=== PATIENT | female | born 1970 | race Caucasian/White ===

== ENCOUNTER → 2023-04-27 12:41 | Outpatient (CLI) | payer OTHER, MEDICARE, SELFPAY ==
--- NOTE | ~2023-04-27 | CT_ITS ---
. EXAMINATION: CT sinus wo con DATE: 04/27/2023 12:55 INDICATION: Chronic sinusitis, frequent drainage. Unsteady gait, balance issues. TECHNIQUE: Computed tomography (CT) of the paranasal sinuses was performed without contrast. Iterativ e reconstruction technique was employed. Exam dose: 268.51 mGy-cm total exam DLP. COMPARISON: None FINDINGS: There is slight rightward bowing of the lower portion of the nasal septum and very slight l eftward bowing of the upper portion of the nasal septum. There is moderate symmetric prominence of the nasal turbinates. The ostiomeatal units are patent bilaterally. Minimal focal mucoperiosteal thickening of each maxillary antrum. The paranasal sinuses otherwise are normally developed and aerated without mucoperiosteal thickening, soft tissue opacity or fluid level . The mastoid air cells are normally developed and aerated. Middle and inner ear apparatus appear teresa l bilaterally. IMPRESSION: Minimal septal bowing Patent paranasal sinuses Minimal focal mucoperiosteal thickening of the maxillary sinuses; otherwise unremarkable paranasal si nuses Normal mastoid air cells Reviewed, dictated and finalized at Location A. Reviewed, dictated and finalized at location L. IMPRESSION: Minimal septal bowing Patent paranasal sinuses Minimal focal mucoperiosteal thickening of the maxillary sinuses; otherwise unr emarkable paranasal sinuses Normal mastoid air cells
== END ==
PROVIDERS: PCP Family Medicine; Visit Provider Otolaryngology
DX: J32.9 Chronic sinusitis, unspecified (principal); J34.2 Deviated nasal septum
CPT/HCPCS: 70486

== ENCOUNTER 2023-06-17 08:36 | Outpatient (CLI) | payer OTHER, MEDICARE, SELFPAY ==
--- NOTE | ~2023-06-17 | XR_ITS ---
AP and lateral views of the right hip Clinical history: Pain Findings: No acute fracture or dislocation is seen. Osseous alignment is anatomic. The right hip join t space is preserved. Soft tissues are unremarkable. Impression: No significant abnormality is seen. Reviewed, dictated and finalized at location . TRONIC PARTS DESIGNER Impression: No significant abnormality is seen.
== END 2023-06-17 08:37 | disposition home or self-care (01) ==
PROVIDERS: PCP Family Medicine; Visit Provider Nurse Practitioner Family
DX: M25.551 Pain in right hip (principal)
CPT/HCPCS: 73502

== ENCOUNTER 2023-08-04 10:06 | Outpatient (CLI) | payer OTHER, MEDICARE, SELFPAY ==
[2023-08-04 10:38] LABS: Basophils Percent Auto 0.3 % (0.2-1.2); Eosinophils Absolute Auto 0.2 K/mm3 (0-0.3); Hemoglobin 15.4 g/dL (12.0-15.0); Immature Granulocyte Absolute 0.08 K/mm3 (0.00-0.031); Immature Granulocyte Percent A 0.8 % (0-0.5); Lymphocytes Absolute Auto 2.17 K/mm3 (0.9-3.2); Lymphocytes Percent Auto 21.3 % (18.3-44.2); Mean Corpuscular HGB Conc 32.8 g/dl (32-36); Mean Corpuscular Hemoglobin 29.5 pg (26-34); Mean Platelet Volume 9.1 fl (7.4-10.4); Monocytes Absolute Auto 0.7 K/mm3 (0.1-0.6); Monocytes Percent Auto 6.5 % (2.6-8.5); Neutrophils Absolute Auto 7.1 K/mm3 (1.3-6.7); Neutrophils Percent Auto 69.1 % (45.5-73.1); Platelet Count Result 281 k/mm3 (150-375); Red Blood Count 5.22 M/mm3 (4.2-5.4); Red Cell Distribution Width 12.7 % (11.5-14.5); White Blood Count 10.2 K/mm3 (4.5-10.0)
[2023-08-04 10:48] LABS: Alanine Aminotransferase 23 U/L (6-35); Albumin Level 4.1 g/dL (3.5-5.1); Alkaline Phosphatase 119 U/L (38-126); Anion Gap 6 mmol/L (8-16); Aspartate Amino Transferase 27 U/L (14-36); Bilirubin,Total 0.5 mg/dL (0.2-1.3); Blood Urea Nitrogen 28 mg/dL (7-17); Calcium 9.6 mg/dL (8.4-10.2); Carbon Dioxide 26 mmol/L (22-30); Chloride 104 mmol/L (98-107); Cholesterol 160 mg/dL (0-200); Estimated Glomerular Filt Rate > 60; Glucose 185 mg/dL (65-110); HDL Direct 40 mg/dL; Potassium 4.5 mmol/L (3.4-5.0); Sodium 136 mmol/L (137-145); Triglycerides 163 mg/dL (<150)
[2023-08-04 11:00] LABS: LDL Cholesterol Direct 85 mg/dL
[2023-08-04 11:04] LABS: Hemoglobin A1C 6.8 % (<5.7)
[2023-08-04 11:42] LABS: Thyroid Stimulating Hormone Reflex 0.155 uIU/mL (0.465-4.68)
[2023-08-04 15:31] LABS: Free T4 Free Thyroxine Reflex 1.05 ng/dL (0.78-2.19)
[2023-08-04 17:04] LABS: Total Triiodothyronine (T3) 1.65 NG/ML (0.97-1.69)
== END 2023-08-04 10:07 | disposition home or self-care (01) ==
LOC: ANHLAB 10:12
PROVIDERS: PCP Family Medicine; Visit Provider Nurse Practitioner Psychiatric/Mental Health
DX: I63.9 Cerebral infarction, unspecified (principal); I10 Essential (primary) hypertension; E11.9 Type 2 diabetes mellitus without complications; F51.01 Primary insomnia; F41.1 Generalized anxiety disorder; F33.0 Major depressive disorder, recurrent, mild; E66.9 Obesity, unspecified
CPT/HCPCS: 36415; 80053; 80061; 83036; 84439; 84443; 84480; 85025

== ENCOUNTER 2023-12-29 09:38 | Outpatient (CLI) | payer OTHER, MEDICARE, SELFPAY ==
--- NOTE | ~2023-12-29 | US_ITS ---
EXAMINATION: US carotid duplex BI DATE: 12/29/2023 11:32 INDICATION: Carotid artery dissection TECHNIQUE: Grayscale, color Doppler, and pulsed Doppler images of the cervical carotid arteries were obtained. The degree of vessel stenosis is placed in one of the following categories: normal, <50%, 5 0-69%, >=70% but less than near-occlusion, near-occlusion, or total occlusion. Note that percent sten osis relative to normal distal artery lumen diameter is indirectly measured from velocity measurement s as described by Jack, et al. Radiology 2003; 229:340-346. COMPARISON: None. FINDINGS: LEFT: The left common carotid artery (CCA) peak systolic velocity (PSV) is 93 cm/s. The left internal carot id artery (ICA) PSV is 93 cm/s. The left ICA end-diastolic velocity (EDV) is 16 cm/s. The left ICA/CC A PSV ratio is 1.0. Grayscale and color Doppler images yield an estimate of <50% diameter reduction f rom plaque in the ICA. The external carotid artery (ECA) PSV is 184 cm/s. There is antegrade flow in the left vertebral artery. RIGHT: The right CCA PSV is 87 cm/s. Likely occlusion of the right ICA with no flow seen in the mid artery o n color Doppler and with turbulent bidirectional flow during systole and with no diastolic flow durin g diastole at the proximal right ICA. The ECA PSV is 151 cm/s. There is antegrade flow in the left ve rtebral artery. IMPRESSION: 1. Likely complete occlusion of the right internal carotid artery. 2. <50% stenosis in the left internal carotid artery. Reviewed, dictated and finalized at location B.
== END 2023-12-29 09:39 | disposition home or self-care (01) ==
PROVIDERS: PCP Physician Assistant; Visit Provider Physician Assistant
DX: I65.22 Occlusion and stenosis of left carotid artery (principal); I77.71 Dissection of carotid artery; Z12.31 Encounter for screening mammogram for malignant neoplasm of breast
CPT/HCPCS: 93880

== ENCOUNTER 2024-03-08 09:03 | Outpatient (CLI) | payer OTHER, MEDICARE, SELFPAY ==
--- NOTE | ~2024-03-08 | NM_ITS ---
EXAMINATION: NM tameka stress w perfusion DATE: 03/08/2024 11:01 INDICATION: Encounter for preprocedural cardiac exam. TECHNIQUE: Rest images were obtained following intravenous administration of 10.8 mCi Tc99m tetrofosm in (Myoview). The patient was infused intravenously with Lexiscan (Regadenoson). Then, 44.5 mCi Tc99m tetrofosmin (Myoview) was administered intravenously, and stress images were obtained initially in t he supine position with repeat post stress images obtained in the prone position. Data was reconstruc pete into short axis and horizontal and vertical long axis SPECT images. Gated SPECT images were also obtained. COMPARISON: None. FINDINGS: There is a moderate-sized moderate severity reversible perfusion defect involving the mid i nferior, basilar inferior segments and small portion of the mid inferolateral segment which is presen t on post stress imaging obtained in both supine and prone positions. There is artifactual decreased activity along portions of the anterior and lateral victoria on the posterior central imaging obtained i n the supine position which normalizes on prone imaging. No perfusion defects on the rest imaging to suggest a fixed infarct. There is normal left ventricular chamber size, wall motion and ejection frac tion. Left ventricular ejection fraction measures 67%. IMPRESSION: 1. Mild to moderate severity reversible ischemia in the right coronary artery vascular distribution i nvolving the mid inferior, basilar inferior and small portion of the mid inferolateral segments. 2. Left ventricular ejection fraction measuring 67%. Reviewed, dictated and finalized at location B. IMPRESSION: 1. Mild to moderate severity reversible ischemia in the right coronary artery v ascular distribution involving the mid inferior, basilar inferior and small por tion of the mid inferolateral segments. 2. Left ventricular ejection fraction measuring 67%.
--- NOTE | 2024-03-08 09:30 | EST_ITS ---
Patient Info Name: Anne Davis Age: 53 years : 1970 Gender: Female Ht: 66 in Wt: 240 lbs BSA: 2.30 m2 HR: 81 bpm BP: 131 / 64 mmHg Exam Date: 03/08/2024 10:04 AM Exam Location: Echo Lab Patient Status: Outpatient Admit Date: 03/08/2024 Staff Ordering Physician: Edmundo Carpenter DO Attending Provider: Edmundo Carpenter DO Exercise Physician: Edmundo Carpenter DO Exam Type: CA stress tameka w NM Study Info A regadenoson stress test was performed. Summary 1. 1. Negative lexiscan stress test for ischemic ST changes by ECG criteria. 2. 2. Stable hemodynamics throughout the test. 3. 3. Nuclear scan to follow and will be reported separately. Please correlate with it. 4. 4. Patient informed of the above results. Protocol: Lexiscan Stress ECG Details Stage: REST Duration (min): 3 min : 57 sec HR (bpm): 83 SBP (mmHg): 131 DBP (mmHg): 64 Stage: REST Duration (min): 7 min : 46 sec HR (bpm): 82 SBP (mmHg): 131 DBP (mmHg): 64 Stage: STAGE 1 Duration (min): 0 min : 59 sec HR (bpm): 89 SBP (mmHg): 128 DBP (mmHg): 42 Stage: RECOVERY Duration (min): 1 min : 0 sec HR (bpm): 90 SBP (mmHg): 128 DBP (mmHg): 42 Stage: RECOVERY Duration (min): 2 min : 0 sec HR (bpm): 88 SBP (mmHg): 128 DBP (mmHg): 42 Stage: RECOVERY Duration (min): 3 min : 0 sec HR (bpm): 85 SBP (mmHg): 127 DBP (mmHg): 46 Stage: RECOVERY Duration (min): 3 min : 14 sec HR (bpm): 86 SBP (mmHg): 127 DBP (mmHg): 46 Rest HR: 82 bpm Peak HR: 90 bpm Rest Sys BP: 131 mmHg Peak Sys BP: 128 mmHg Max Pred HR: 167 bpm % Max Pred HR: 54 % Target HR: 142 bpm Max RPP: 11,520 bpm*mmHg Termination Reason: Completed protocol Cardiac Symptoms: Shortness of breath Total Time: 1 min : 0 sec Rest Carrera BP: 64 mmHg Peak Carrera BP: 42 mmHg Total Dose: 0.4 mg Resting ECG Sinus rhythm. Stress ECG No ST changes. Arrhythmias None. Report Signatures
== END 2024-03-08 09:04 | disposition home or self-care (01) ==
PROVIDERS: PCP Physician Assistant; Visit Provider Internal Medicine Cardiovascular Disease
DX: Z01.810 Encounter for preprocedural cardiovascular examination (principal); I25.9 Chronic ischemic heart disease, unspecified
CPT/HCPCS: 78452; 93017; A9502; J2785

== ENCOUNTER 2024-03-10 13:42 | Outpatient (CLI) | payer OTHER, MEDICARE, SELFPAY ==
--- NOTE | 2024-03-10 13:44 | ECHO_ITS ---
Patient Info Name: Anne Davis Age: 53 years : 1970 Gender: Female Ht: 66 in Wt: 241 lbs BSA: 2.31 m2 HR: 90 bpm BP: 123 / 76 mmHg Heart Rhythm: Sinus Rhythm Technical Quality: Fair Exam Date: 03/10/2024 2:00 PM Exam Location: Echo Lab Patient Status: Outpatient Admit Date: 03/10/2024 Staff Ordering Physician: Edmundo Carpenter DO Boat Hand: Blanca Davies RDCS Attending Provider: Edmundo Carpenter DO Referring Physician: Jayden KYLE; Exam Type: CA echo doppler color flow Study Info Indications R06.09 - Other forms of dyspnea Complete two-dimensional, color flow and Doppler transthoracic echocardiogram is performed. Summary 1. Complete two-dimensional, color flow and Doppler transthoracic echocardiogram is performed. 2. Left ventricular chamber dimension is normal. 3. Left ventricular systolic function is normal, estimated at 60-65%. 4. The left ventricular diastolic function is grade I diastolic dysfunction. 5. E/e' 12 is mildly elevated. 6. The aortic valve is not well visualized. Cannot determine number of aortic valve leaflets. 7. There is trace aortic valve regurgitation. 8. The mitral valve has mildly calcified annulus. 9. No pulmonary hypertension, estimated pulmonary arterial systolic pressure is 17 mmHg. Left Ventricle E/e' 12 is mildly elevated. Left ventricular chamber dimension is normal. Left ventricular systolic function is normal, estimated at 60-65%. The left ventricular diastolic function is grade I diastolic dysfunction. Right Ventricle Right ventricular systolic function is normal and with normal TAPSE 2.0 cm. Right ventricular chamber dimension is normal. Left Atria Left atrial chamber dimension is normal. Right Atria Right atrial chamber dimension is normal. Aortic Valve The aortic valve is not well visualized. Cannot determine number of aortic valve leaflets. There is no aortic valve stenosis based on valve area and gradients. There is trace aortic valve regurgitation. Pulmonic Valve There is no pulmonic regurgitation. Mitral Valve The mitral valve has mildly calcified annulus. There is no mitral valve stenosis. There is no mitral valve regurgitation. Tricuspid Valve There is no tricuspid valve regurgitation. No pulmonary hypertension, estimated pulmonary arterial systolic pressure is 17 mmHg. Pericardium/Pleural There is no pericardial effusion. Inferior Vena Cava Normal inferior vena cava with >50% collapse upon inspiration consistent with normal right atrial pressure, 5 mmHg. Aorta The aortic root size at the sinus of Valsalva is normal. Left Ventricular Outflow Tract Name Value Normal LVOT 2D LVOT Diameter 2.0 cm LVOT Doppler LVOT Peak Gradient 6 mmHg LVOT Mean Gradient 3 mmHg LVOT VTI 20 cm LVOT VTI/AV VTI Ratio 0.8 LVOT Stroke Volume 60 ml LVOT CO 4.5 l/min LVOT CI 1.9 l/min/m2 Pulmonic Valve Name Value Normal
== END 2024-03-10 13:43 | disposition home or self-care (01) ==
LOC: ANHCARD 13:43
PROVIDERS: PCP Physician Assistant; Visit Provider Internal Medicine Cardiovascular Disease
DX: R06.09 Other forms of dyspnea (principal); I34.81 Nonrheumatic mitral (valve) annulus calcification
CPT/HCPCS: 93306

== ENCOUNTER 2024-03-28 01:21 | Day surgery (SDC) | payer OTHER, MEDICARE, SELFPAY ==
[2024-03-27 15:42] VITALS: BMI 38.7
[2024-03-28] VITALS (15 sets, daily range): BP systolic 119–154; BP diastolic 62–82; PULSE 81–95; RESP 14–19; TEMP 36.1–36.7; O2SAT 92–97; BMI 38.8
[2024-03-28 09:07] LABS: Basophils Percent Auto 0.3 % (0.2-1.2); Eosinophils Absolute Auto 0.2 K/mm3 (0-0.3); Eosinophils Percent Auto 1.3 % (0-4.4); Hematocrit 46.2 % (37.0-47.0); Hemoglobin 15.6 g/dL (12.0-15.0); Immature Granulocyte Percent A 0.8 % (0-0.5); Lymphocytes Absolute Auto 3.73 K/mm3 (0.9-3.2); Lymphocytes Percent Auto 28.9 % (18.3-44.2); Mean Corpuscular HGB Conc 33.8 g/dl (32-36); Mean Corpuscular Hemoglobin 30.8 pg (26-34); Mean Corpuscular Volume 91.1 fl (80-100); Mean Platelet Volume 9.1 fl (7.4-10.4); Monocytes Absolute Auto 0.7 K/mm3 (0.1-0.6); Monocytes Percent Auto 5.7 % (2.6-8.5); Neutrophils Absolute Auto 8.1 K/mm3 (1.3-6.7); Platelet Count Result 319 k/mm3 (150-375); Red Blood Count 5.07 M/mm3 (4.2-5.4); Red Cell Distribution Width 12.5 % (11.5-14.5); White Blood Count 12.9 K/mm3 (4.5-10.0)
[2024-03-28 09:17] LABS: Anion Gap 12 mmol/L (4-12); Blood Urea Nitrogen 20 mg/dL (7-17); Calcium 9.2 mg/dL (8.4-10.2); Carbon Dioxide 24 mmol/L (22-30); Chloride 101 mmol/L (98-107); Estimated CRCL calculation 79 ml/min; Estimated Glomerular Filt Rate > 60; Glucose 222 mg/dL (65-110); Potassium 4.1 mmol/L (3.4-5.0); Sodium 137 mmol/L (137-145)
[2024-03-28] MEDS: SODIUM CHLORIDE 0.9% IV 500 ML 100 ML IV CONT (09:25)
--- NOTE | 2024-03-28 09:57 | WPDHPUPDATE1 ---
History and Physical Update Update Date/Time: 03/28/24 09:57 History and Physical has been reviewed, including an updated exam of the patient. There are NO changes in the patient's condition. Risks, benefits, and alternatives have been discussed and questions answered. Patient agrees to proceed with procedure.
--- NOTE | 2024-03-28 09:58 | WPDMODSED ---
Moderate Sedation Note-Pt Data Patient Data Allergies Allergy/AdvReac Type Severity Reaction Status Date / Time meperidine Allergy Unknown Unknown Verified 03/09/24 10:01 Home Medications Medication Instructions Recorded Confirmed Type aripiprazole 5 mg tablet 5 mg PO QHS 10/25/23 03/27/24 History atorvastatin 20 mg tablet 20 mg PO DAILY 10/25/23 03/27/24 History buspirone 30 mg tablet 30 mg PO BID 10/25/23 03/27/24 History duloxetine 60 mg capsule,delayed 60 mg PO DAILY 10/25/23 03/27/24 History release epinephrine 0.3 mg/0.3 mL 0.3 mg IM Q4H PRN Anaphylaxis 10/25/23 03/27/24 History injection, auto-injector flash glucose scanning reader 10/25/23 03/27/24 History ([employer] Dixie 14 Day [place]) insulin glargine 100 unit/mL (3 10 unit subcut BID 10/25/23 03/27/24 History mL) subcutaneous pen (Lantus Solostar U-100 Insulin) insulin lispro 100 unit/mL 1 sliding scale dose subcut 10/25/23 03/27/24 History subcutaneous pen (Humalog KwikPen USEASDIRECTD (U-100) Insulin) lamotrigine 200 mg tablet 200 mg PO BID 10/25/23 03/27/24 History lisinopril 5 mg tablet 5 mg PO DAILY 10/25/23 03/27/24 History sertraline 100 mg tablet 100 mg PO DAILY 10/25/23 03/27/24 History tirzepatide 2.5 mg/0.5 mL 2.5 mg subcut WEEKLY 10/25/23 03/27/24 History subcutaneous pen injector (Abby) trazodone 50 mg tablet 50 mg PO QHS PRN Insomnia 10/25/23 03/27/24 History Current Medications: Active Medications Sodium Chloride (Normal Saline Iv) 500 mls @ 100 mls/hr IV CONT .Q5H FRANCESCO Sedation/Anesthesia: No previous sedation/anesthesia problems (including family history). [facility] Past Medical History Medical History (Updated 03/09/24 @ 06:01 by Edmundo Carpenter DO) Acute sinusitis Benign paroxysmal vertigo Cerebrovascular accident (~09/28/18) Cobalamin deficiency Depressive disorder Foreign body in foot Generalized anxiety disorder GERD without esophagitis History of disorder of carotid artery (~2007) Carotid Dissection Hypercholesteremia Hyperlipidemia Hypertension Localized osteoarthritis of right knee Pilonidal cyst (~1996) Removed Primary localized osteoarthritis of left knee Transient cerebral ischemia (~09/28/18) Type 2 diabetes mellitus Surgical History Surgical History History of bunionectomy (~2002) History of endometrial ablation (~2008) History of foot surgery (~11/2020) Foreign body removal- Left foot History of parotidectomy (~2002) History of partial hysterectomy (~2009) History of tonsillectomy (~1975) History of total knee arthroplasty (~2022) Family History Family History Father Diabetes mellitus Heart disease Hypertension Grandparent Cerebrovascular accident Carcinoma of colon Acute Crohn's disease Other Family history of arthritis Family history of malignant neoplasm Family history of mental disorder Social History Social History (Updated 03/09/24 @ 10:02 by Batsheva Xavier [facility]) Smoking status: Never smoker Alcohol intake: never Substance use: never Substance use type: does not use Do You Feel Safe in your Home?: Yes Lack of Transportation: No Lack of Food: Never True Current Housing: I Have Housing Concerned About Future Housing: No Difficulty Paying Gas/Electric Bills: No Difficulty Paying for Meds: No Currently Unemployed: No Education: High School Diploma/GED Difficulty w/ Childcare or Family Care: No Living arrangements: with family Spiritual care concerns: No Mod Sed Physical Exam Physical Exam Pre Procedural Exam: Normal: Appearance, Lungs, Heart Rate and Heart Rhythm Hours since solid foods: 12 Hours since liquid intake: 8 Mallampati Classification: class III Internal Medicine - PN: Obj Da Vital Signs Vital Signs: Vital Signs - 24 hr 03/28/24 08:58 Temperature 36.1 C L Pulse Rate 95
--- NOTE | 2024-03-28 09:58 | WPDCARDPROC ---
Cardiac Cath Procedure Note Date of procedure:: 03/28/24 Performing physician:: CATHETERIZATION LABORATORY REPORT Procedure Date: 03/28/2024 Referring Physician: Dr. Carpenter Anesthesia: Versed and Fentanyl were ordered and given in my presence at 1014, procedure ended at 1029. Supervision of nurse, Neeta Wheeler, monitored moderate sedation with 2mg Versed and 50mcg Fentanyl was provided for 15 minutes. Pre-op Diagnosis: Abnormal stress test Post-op Diagnosis: Abnormal stress test Procedure(s): Left heart catheterization with coronary angiography Access Site: Right radial artery. Hemostasis via TR band Brief History and Clinical Indications: 53 yo woman with dyspnea found to have abnormal stress test here to define coronary anatomy. All risks, benefits and alternatives to left heart catheterization with or without percutaneous coronary intervention was discussed at length with the patient. Risk of complications including but not limited to bleeding, infection, arrhythmia, stroke, worsening kidney function, blood loss, groin hematoma, limb loss, emergency coronary artery bypass grafting, and even were discussed with the patient and all questions were answered. The patient understood and wished to proceed. Time out called, patient name, date of , medical record number, allergies, procedure performed, identify Material Clerk, patient and staff member concurred with accurate data, procedure carried on. Findings: LEFT HEART CATHETERIZATION FINDINGS: 1. Left main: The left main coronary artery is widely patent without any significant obstructive disease. 2. Left anterior descending: The LAD and the diagonal branches have mild diffuse 20% stenosis without any significant obstructive angiographic disease. 3. Left circumflex: The left circumflex artery gives off 3 OM branches. The proximal left circumflex has 50-60% stenosis. The OM branches have luminal irregularities. This system provides collaterals to the RCA territory. 4. Right coronary artery: The RCA is a dominant vessel with a AREA INTELLIGENCE TECHNICIAN in it's midbody. 5. Left ventricle: A. End-diastolic pressure 23 mmHg. B. LV gram deferred. C. No significant gradient across aortic valve on catheter pullback. 6. Opening AO pressure 107/64 (76) and closing AO pressure 142/74 (96) Description of Procedure: Informed consent signed and placed in the chart. Patient transferred to label printing machinist room. Prepped and draped in usual sterile fashion. 2% lidocaine injected subcutaneously in right wrist area. 22-gauge venipuncture catheter used to access the right radial artery with the Seldinger technique. 6-FR slender sheath placed in right radial artery. Nitroglycerin 200mcg, Verapamil 2.5mg, and Heparin 5000U was given intraarterial through the sheath. J wire advanced under fluoroscopy 5Fr TIG diagnostic catheter engaged Left Main Coronary Artery. 5Fr TIG diagnostic catheter engaged Right Coronary Artery Multiple orthogonal angiogram obtained and reviewed 5Fr Pigtail diagnostic catheter crossed aortic valve to obtain LVEDP, LV angiogram deferred. Assessment: CAD Post Operative Condition: Stable No significant blood loss Disposition: Home Plan: Medical management/Antianginals [facility]
== END 2024-03-28 14:10 | disposition home or self-care (01) ==
PROVIDERS: PCP Physician Assistant; Visit Provider Internal Medicine
PROC: 4A023N7 Measurement of Cardiac Sampling and Pressure, Left Heart, Percutaneous Approach (ICD-10-PCS; CPT 93452; principal; 2024-03-28 10:00)
DX: I25.10 Atherosclerotic heart disease of native coronary artery without angina pectoris (principal); R94.39 Abnormal result of other cardiovascular function study; I10 Essential (primary) hypertension; E11.9 Type 2 diabetes mellitus without complications; E78.00 Pure hypercholesterolemia, unspecified; F32.A Depression, unspecified; F41.1 Generalized anxiety disorder; K21.9 Gastro-esophageal reflux disease without esophagitis; E53.8 Deficiency of other specified B group vitamins; M17.0 Bilateral primary osteoarthritis of knee; Z98.890 Other specified postprocedural states; Z79.4 Long term (current) use of insulin; Z79.85 Long-term (current) use of injectable non-insulin antidiabetic drugs; Z86.79 Personal history of other diseases of the circulatory system; Z86.73 Personal history of transient ischemic attack (TIA), and cerebral infarction without residual deficits; Z80.0 Family history of malignant neoplasm of digestive organs; Z82.49 Family history of ischemic heart disease and other diseases of the circulatory system
CPT/HCPCS: 36415; 78452; 80048; 85025; 93017; 93458; A9502; C1769; C1887; C1894; J1644; J2003; J2250; J2305; J2785; J3010; J7040

== ENCOUNTER 2024-12-26 10:47 | Outpatient (RCR) | payer OTHER, MEDICARE, SELFPAY ==
--- NOTE | 2024-12-06 11:19 | PCPTNOTE ---
pt called and canceled today's PT evaluation appt.
--- NOTE | 2024-12-26 12:03 | OPREHPOC ---
Outpatient Therapy Plan of Care This is a Multidisciplinary Plan of Care that may contain components documented by all disciplines (PT, OT, and ST.) PT Problem 1 PT Problem #1 Knowledge Deficit PT Goal 1 Goal / Goal Update *independent with HEP Target Visit 8 PT Problem 2 PT Problem #2 Impaired Strength PT Goal 1 Goal / Goal Update 1improve R and L LE gross strength to 4+/5, to improve mobility skills and balance single leg standing x 10 seconds 2* R 3* L Target Visit 8 PT Problem 3 PT Problem #3 Impaired Functional Mobility PT Goal 1 Goal / Goal Update 1* Yeung balance score of 56/56 2* 5 reps sit/stand time of 14 seconds 3* 2 minute walking test distance of 475' Target Visit 8
--- NOTE | 2024-12-26 12:03 | PTOPEVAL1 ---
Assessment and note entered by Ella Herring, PT Evaluation Information Assessment Status Evaluation ICD-10 Condition Codes (PT) Difficulty Walking R26.2,Abnormalities of gait and mobility R26.9,Weakness R53.1,Dizziness and Giddiness R42 Onset Feb 2024 Subjective Information chronic issues with equilibrium, when standing up, but not always happen; mentioned it to her dr about Feb 2024; have had falls, with R leg tremors and weak, makes me fall; in the past 6 months have had 1 fall; nervous about walking from the parking lot into this building due to R leg and head feeling heavy, afraid to fall symptoms: unsteady, head heavy, head is big, grab onto something to steady herself, walking is unsteady increase: first stand up, decrease: sit down, wait until passes, hold onto something, walk out in public with holding onto ; Activity: home with ; able to do all home and self care tasks; 3 entry steps with 1 hand rail- do ok holding onto rail; does some grocery shopping but prefers her does it, she holds onto cart; does not work outside of the home; does not do any fitness exercises; does not use assistive device; Reported Pain Level Pain Score 4: Self Report R knee Assessment PT Clinical Summary Anne has the diagnosis of vestibular/dizziness, weakness, decreased mobility. Dizziness Handicap index self rating of 44. She had R knee pain and stated she needs to have TKR, but putting it off as long as she can. She does not do any fitness exercises and reports nervous to walk at the store and go places. Symptoms are of head heavy and feel funny, unsteady and off balance. Medical history: CVA with R side weakness, generalized arthritis of body, R knee pain/ needing TKR, allergy/sinus issues, anxiety, depression, HTN, diabetes, with multiple meds. With the evaluation: vestibular testing for BPPV was negative; positional changes, standing 360' turns-do not cause any dizziness; BP was stable with sit and standing positions. 5 reps sit/stand time of 17 seconds; 2 minute walking test distance of 425' with report of SOB; Yeung balance score of 49/56, gross strength of R LE is 4-/5 and L 4/5. Skilled PT services are indicated for therapeutic exercises and activity to increase LE strength, gait and balance skills, with education for HEP and safety with mobility. Monitor vestibular symptoms and pain with increase activity. Plan of Care Interventions Neuro Re-education,Patient/Caregiver Education, Therapeutic Activities,Therapeutic Exercise PT Services Indicated Yes Treatment Frequency and 1-2x/wk for 8 visits Duration These treatments will address the objective and functional deficits as defined above. The patient will be advanced safely and appropriately in order for the patient to progress towards his/her prior level of function. Additional exercises will be introduced and as well as a comprehensive home exercise program upon discharge, if needed, ?to ensure carryover of functional gains achieved in the clinic. This treatment plan has been reviewed and agreement upon by the patient.
--- NOTE | 2025-01-10 14:28 | OPREHPOC ---
Outpatient Therapy Plan of Care This is a Multidisciplinary Plan of Care that may contain components documented by all disciplines (PT, OT, and ST.) PT Problem 1 PT Problem #1 Knowledge Deficit PT Goal 1 Goal / Goal Update *independent with HEP 01-10-25 d/c goals were not addressed pt called and canceled therapy Target Visit 8 PT Problem 2 PT Problem #2 Impaired Strength PT Goal 1 Goal / Goal Update 1improve R and L LE gross strength to 4+/5, to improve mobility skills and balance single leg standing x 10 seconds 2* R 3* L 01-10-25 d/c goals were not addressed pt called and canceled therapy Target Visit 8 PT Problem 3 PT Problem #3 Impaired Functional Mobility PT Goal 1 Goal / Goal Update 1* Yeung balance score of 56/56 2* 5 reps sit/stand time of 14 seconds 3* 2 minute walking test distance of 475' 01-10-25 d/c goals were not addressed pt called and canceled therapy Target Visit 8
--- NOTE | 2025-01-10 14:28 | PTOPDC ---
Assessment and note entered by Ella Herring, PT Assessment Status Discharge - Pt Not Present ICD-10 Condition Codes (PT) Difficulty Walking R26.2,Abnormalities of gait and mobility R26.9,Weakness R53.1,Dizziness and Giddiness R42 Onset Feb 2024 Subjective Information pt was not seen this date. Assessment PT Clinical Summary Anne received the PT evaluation on December 26. She called today and canceled all of the therapy appointments due to having neuro issues. The goals were not addressed. Discharge PT per pt request. Plan of Care PT Services Indicated No
== END 2025-01-11 10:32 | disposition home or self-care (01) ==
LOC: ANHPT 10:47
PROVIDERS: PCP Physician Assistant; Visit Provider Nurse Practitioner Family
DX: R42 Dizziness and giddiness (principal)
CPT/HCPCS: 97110; 97161; 97530

== ENCOUNTER 2025-02-19 11:48 | Outpatient (CLI) | payer OTHER, MEDICARE, SELFPAY ==
--- OUTSIDE RECORDS SUMMARY | 2023-12-11 16:30 | XMS_ITS ---
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 Name Role Phone José Miguel Velez Primary Care Provider Unavailab Jeffrey Graves Unavailable [phone] [facility]Migration, Provider Unavailable Unavailab le Allergies Allergen (clinical drug ingredient) Drug/Non Drug Allergy documented on EMR Reaction Allergy Type Onset Date Status DEMEROL HCL (uncoded) Hallucinations Allergy Active REASON [facility] VISIT [facility] Encounter Medications Medication SIG (Take, Route, Frequency, Duration) Notes Start Date End Date Status Levemir 100 UNIT/ML 0 subcutaneously Active Victoza 18 MG/3ML subcutaneously once a day Active Azelastine HCl 137 MCG/SPRAY 2 spray(s) intranasally 2 times a day; Duration: 30 day(s) Active Azelastine HCl 137 MCG/SPRAY 2 spray(s) intranasally 2 times a day; Duration: 30 days Unknown OLOPATADINE HYDROCHLORIDE 665 MCG/INH 2 SPRAY(S) INTRANASALLY 2 TIMES A DAY; Duration: 30 DAY(S) *Please review for potential replacement for e-prescription and drug interaction check* 05/30/2020 Unknown EPINEPHrine 0.3 MG 0.3 MG INTRAMUSCULARLY ONCE; Duration: 30 DAY(S) *Please review and pick correct strength-formulat ion from [employer] options. If intended option is not shown, discontinue and re-order from Quick Search* Active NASAL WASHES N/A DIRECTED INTRANASALLY NEEDED; Duration: 30 *Please review for potential replacement for e-prescription and drug interaction check* Active Azelastine HCl 137 MCG/SPRAY 2 spray(s) intranasally 2 times a day; Duration: 30 day(s) Active SIT (TRADITIONAL) VARIABLE PER SCHEDULE SC PER SCHEDULE *Please review for potential replacement for e-prescription and drug interaction check* Active NovoLIN 70/30 (70-30) 100 UNIT/ML 0 subcutaneously Acti ve PAZEO 0.7% 1 GTT IN EACH AFFECTED EYE ONCE A DAY; Duration: 30 DAY(S) *Please review for potential replacement for e-prescription and drug interaction check* Active Lisinopril 5 MG 1 tab(s) orally once a day Active ZyrTEC Allergy 10 MG 1 tab(s) orally once a day Active AGGRENOX 25 MG-200 MG 1 CAP(S) ORALLY 2 TIMES A DAY *Please review for potential replacement for e-prescription and drug interaction check* Active ALPRAZolam 0.25 MG 2 tab(s) orally qhs Active Atorvastatin Calcium 10 MG 1 tab(s) orally once a day Active lamoTRIgine 150 MG 1 tab(s) orally 2 times a day Active Encounters Encounter Location Date Provider Diagnosis [address] [address] 12/11/2023 Provider ZZ-Migration Plan Of Treatment No Information Progress Notes * Anne STANLEY ADOB: 0 (54 yo F)Acc No.[id number]:12/11/2023 Patient: Anne COUCH Provider: Courtney Ramirez :1970 A ge:53 Y S ex:Female Date:12/11/2023 Address:[address] [place], [place] [id number] Pcp:José Miguel Velez Subjective: * Chief Complaints: * 1 . Multum To [employer] Conversion Encounter. * Medical History: * Medications: T aking Victoza 18 MG/3ML Solution Pen-injector subcutaneously once a day , Taking Levemir 100 UNIT/ML Solution 0 subcutaneously , Taking lamoTRIgine 150 MG Tablet 1 tab(s) orally 2 times a day , Taking Atorvastatin Calcium 10 MG Tablet 1 tab(s) orally once a day , Taking ALPRAZolam 0.25 MG Tablet 2 tab(s) orally qhs , Taking AGGRENOX 25 MG-200 MG CAPSULE, EXTENDED RELEASE 1 CAP(S) ORALLY 2 TIMES A DAY , Notes to Pharmacist: *Please review for potential replacement for e-prescription and drug interaction check*, Taking Lisinopril 5 MG Tablet 1 tab(s) orally once a day , Taking PAZEO 0.7% SOLUTION 1 GTT IN EACH AFFECTED EYE ONCE A DAY , Notes to Pharmacist: *Please review for potential replacement for e-prescription and drug interaction check*, Taking ZyrTEC Allergy 10 MG Tablet 1 tab(s) orally once a day , Taking NASAL WASHES N/A 1 QUART OF STERILIZED TAP WATER OR DISTILLED WATER, 1 TSP NACL, 1 PINCH OF BAKING SODA DIRECTED INTRANASALLY NEEDED , Notes to Pharmacist: *Please review for potential replacement for e-prescription and drug interaction check*, Taking EPINEPHrine 0.3 MG KIT 0.3 MG INTRAMUSCULARLY ONCE , Notes to Pharmacist: *Please review and pick correct strength-formulation from [employer] options. If intended option is not shown, discontinue and re-order from Quick Search*, Taking SIT (TRADITIONAL) VARIABLE SEE RECORD PER SCHEDULE SC PER SCHEDULE , Notes to Pharmacist: *Please review for potential replacement for e-prescription and drug interaction check*, Taking Azelastine HCl 137 MCG/SPRAY Solution 2 spray(s) intranasally 2 times a day , Taking NovoLIN 70/30 (70-30) 100 UNIT/ML Suspension 0 subcutaneously , Taking Azelastine HCl 137 MCG/SPRAY Solution 2 spray(s) intranasally 2 times a day , Unknown OLOPATADINE HYDROCHLORIDE 665 MCG/INH SPRAY 2 SPRAY(S) INTRANASALLY 2 TIMES A DAY , Notes to Pharmacist: *Please review for potential replacement for e-prescription and drug interaction check*, Unknown Azelastine HCl 137 MCG/SPRAY Solution 2 spray(s) intranasally 2 times a day * Allergies: D EMEROL HCL: Hallucinations - Side Effects. Objective: * Vitals: Assessment: Plan: * Treatment: * Billing Information: * Visit Code: * Procedure Codes: * Electronic signature of Shea NEGRO-Migration on 02/19/2025 at 12:17 PM CDT Sign off status: Pending * Provider: Courtney cummins Migration Date: 0 12/11/2023 Generated for Naye trujillo/Anny/eTransmitting on: 0 02/19/2025 12:17 PM CDT
--- OUTSIDE RECORDS SUMMARY | 2023-12-16 12:30 | XMS_ITS ---
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 Role Phone José Miguel Velez Primary Care Provider Unavailab Jeffrey Graves Unavailable [phone] Betty Shearer Unavailable [phone] REASON FOR VISIT [facility] follow-up Encounters Encounter Location Date Provider Diagnosis [facility] [address] [place] [address] 12/16/2023 Betty Shearer Plan Of Treatment No Information Progress Notes * Anne STANLEY ADOB: 0 (54 yo F)Acc No.[id number]:12/16/2023 Progress Notes Patient: Anne COUCH Provider: Maurilio Shearer PA-C :1970 A ge:53 Y S ex:Female Date:12/16/2023 Address[address] [facility] Pcp:José Miguel Velez Subjective: * Chief Complaints: * 1 . [facility]C follow-up. * Medical History: Objective: * Vitals: Assessment: Plan: * Treatment: * Billing Information: * Visit Code: * Procedure Codes: * Electronic signature of Leonard Shearer PA-C [facility] on 02/19/2025 at 12:17 PM CDT Sign off status: Pending * Provider: Maurilio Shearer PA-C Date: 0 12/16/2023 Generated for Naye trujillo/Anny/Kamran on: 0 02/19/2025 12:17 PM CDT
--- OUTSIDE RECORDS SUMMARY | 2025-02-19 12:17 | XMS_ITS | Patient Health Record ---
Author Organization [facility] [place] ([address]) Address [address] [place] [address] Care Team Providers Care Center Administrator Name Role Phone José Miguel Velez Primary Care Provider Unavailab Jeffrey Graves Unavailable [phone] Allergies Allergen (clinical drug ingredient) Drug/Non Drug Allergy documented on EMR Reaction Allergy Type Onset Date Status DEMEROL HCL (uncoded) Hallucinations Allergy Active Reason For Referral No Information Medications Medication SIG (Take, Route, Frequency, Duration) Notes Start Date End Date Status LEVEMIR 100 units/mL 0 subcutaneously Active VICTOZA 18 mg/3 mL subcutaneously once a day Active ATORVASTATIN 10 mg 1 tab(s) orally once a day Active LAMOTRIGINE 150 mg 1 tab(s) orally 2 times a day Active EPINEPHrine 0.3 MG 0.3 MG INTRAMUSCULARLY ONCE; Duration: 30 DAY(S) *Please review and pick correct strength-formulat ion from [employer] options. If intended option is not shown, discontinue and re-order from Quick Search* Active ALPRAZOLAM 0.25 mg 2 tab(s) orally qhs Active NASAL WASHES N/A DIRECTED INTRANASALLY NEEDED; Duration: 30 *Please review for potential replacement for e-prescription and drug interaction check* Active Azelastine HCl 137 MCG/SPRAY 2 spray(s) intranasally 2 times a day; Duration: 30 day(s) Active LISINOPRIL 5 mg 1 tab(s) orally once a day Active SIT (TRADITIONAL) VARIABLE PER SCHEDULE SC PER SCHEDULE *Please review for potential replacement for e-prescription and drug interaction check* Active Azelastine HCl 137 MCG/SPRAY 2 spray(s) intranasally 2 times a day; Duration: 30 day(s) Active ZYRTEC 10 mg 1 tab(s) orally once a day Active NovoLIN 70/30 (70-30) 100 UNIT/ML 0 subcutaneously Acti ve Azelastine HCl 137 MCG/SPRAY 2 spray(s) intranasally 2 times a day; Duration: 30 days Unknown OLOPATADINE HYDROCHLORIDE 665 MCG/INH 2 SPRAY(S) INTRANASALLY 2 TIMES A DAY; Duration: 30 DAY(S) *Please review for potential replacement for e-prescription and drug interaction check* 05/30/2020 Unknown EPINEPHRINE 0.3 mg 0.3 mg intramuscularly once; Duration: 30 day(s) Active AZELASTINE HYDROCHLORIDE NASAL 137 mcg/inh 2 spray(s) intranasally 2 times a day; Duration: 30 day(s) Active AZELASTINE HYDROCHLORIDE NASAL 137 mcg/inh 2 spray(s) intranasally 2 times a day; Duration: 30 day(s) Active NOVOLIN 70/30 human recombinant 70 units-30 units/mL 0 subcutaneously Active PAZEO 0.7% 1 GTT IN EACH AFFECTED EYE ONCE A DAY; Duration: 30 DAY(S) *Please review for potential replacement for e-prescription and drug interaction check* Active Lisinopril 5 MG 1 tab(s) orally once a day Active ZyrTEC Allergy 10 MG 1 tab(s) orally once a day Active AZELASTINE NASAL 137 mcg/inh 2 spray(s) intranasally 2 times a day; Duration: 30 days Unknown Levemir 100 UNIT/ML 0 subcutaneously Active Victoza 18 MG/3ML subcutaneously once a day Active Atorvastatin Calcium 10 MG 1 tab(s) orally once a day Active lamoTRIgine 150 MG 1 tab(s) orally 2 times a day Active AGGRENOX 25 MG-200 MG 1 CAP(S) ORALLY 2 TIMES A DAY *Please review for potential replacement for e-prescription and drug interaction check* Active ALPRAZolam 0.25 MG 2 tab(s) orally qhs Active Immunizations Vaccine Route Administration Date Status Comme nts Fluzone Quadrivalent Unknown 05/18/2020 Administered Influenza Unknown 03/02/2016 Administered NOC Fluzone Quadrivalent Unknown 03/07/2018 Refused NOC Fluzone Quadrivalent Unknown 09/19/2018 Refused Social History Tobacco Use: Social History Observation Description Date Details (start date - stop date) Never Smoker NA - NA Smoking Smart Form: Question Answer Notes Are you a: never smoker Problems Problem Type SNOMED Code ICD Code Onset Dates Problem Status W/U Status Risk Notes Problem Chronic allergic conjunctivitis (12085831) Other chronic allergic conjunctivitis (H10.45) Active confirmed Problem Allergic rhinitis caused by pollen (disorder) (45647196) Allergic rhinitis due to pollen (J30.1) Active confirmed Problem Allergic rhinitis caused by animal hair and dander (929727837428496) Allergic rhinitis due to animal (cat) (dog) hair and dander (J30.81) Active confirmed Problem Allergic rhinitis (98940974) Other allergic rhinitis (J30.89) Active confirmed Problem Chronic rhinitis (18211481) Chronic rhinitis (J31.0) Active confirmed Problem Adverse effect o f other narcotics, subsequent encounter (T40.695D) Active confirmed Problem Allergic rhinitis caused by pollen (disorder) (27433628) Allergic rhinitis due to pollen (J30.1) Active confirmed Problem Allergic rhinitis caused by animal hair and dander (056889405750023) Allergic rhinitis due to animal (cat) (dog) hair and dander (J30.81) Active confirmed Problem Allergic rhinitis (62189234) Other allergic rhinitis (J30.89) Active confirmed Problem Chronic allergic conjunctivitis (96838216) Other chronic allergic conjunctivitis (H10.45) Active confirmed Problem Snoring (45192484) Snoring (R06.83) Active confirmed Problem Essential hypertension (25622119) Essential (primary) hypertension (I10) Active confirmed Plan Of Treatment No Information Insurance Providers Payer Name Payer Address Payer Phone Subscriber Number Group Number Insured Name Patient Relationship to Insured Coverage Start Date Coverage End Date [facility] [address] [place] [address] [phone] [id number] Presley Soto Spouse - patient is the spouse of the insured 1 [facility] Medicare [address] [address] [place] [address] [id number] Anne Davis Self - patient is the insured Medical (General) History Medical History History ICD Code Other cerebrovascular disease Pure hypercholesterolemia, unspecified Diabetes insipidus Anxiety disorder, unspecified Allergic rhinitis due to pollen Other allergic rhinitis Other chronic allergic conjunctivitis Chronic rhinitis Adverse effect of other narcotics, subse quent encounter Snoring Essential (primary) hypertension Surgical History Surgery Date(Month/Year) T & A 1975 Pilonidal Cyst Removal 1996 Salivary Gland Removal 2000 Uterine Ablation 2008 Partial Hysterectomy 2009 Foreign object removed from foot 06/2021 knee replacement 09/24/2022 Hospitalization History Reason Date(Month/Year) CVA 2008 Pneumonia 1980
--- OUTSIDE RECORDS SUMMARY | 2025-02-19 12:17 | XMS_ITS | Patient Health Record ---
Author Organization [facility] [employer] Address [address] [place] [address] Care Team Providers Care Timber Deadener Name Role Phone Delphine Kingsley PA-C Primary Care Provider Batsheva Enriquez Unavailable [phone] Allergies No Known Allergies Reason For Referral No Information Medications Medication SIG (Take, Route, Frequency, Duration) Notes Start Date End Date Status Abilify 5 MG Tablet 1 tablet Oral Once a day; Duration: 90 days D/C 7.5 MG DOSE Active FREESTYLE CHARY 14 DAY SENSOR KIT *Reorder from [employer] for eRx and Interaction Alerts* 10/22/2023 Active Sertraline HCl 100 MG Tablet 1 tablet Oral Once a day; Duration: 90 days Active ARIPiprazole 5 MG Tablet Oral 10/22/2023 Not-Taking Ergocalciferol 1.25 MG (02511 UT) Capsule Oral 10/22/2023 Not-Taking DULoxetine HCl 60 MG Capsule Delayed Release Particles 1 capsule Oral Once a day; Duration: 90 days Active Atorvastatin Calcium 20 MG Tablet Oral 10/22/2023 Active lamoTRIgine 200 MG Tablet 1 tablet Oral twice a day; Duration: 90 days Active Levemir FlexPen 100 unit/mL (3 mL) INSULIN PEN (ML) SUBCUTANEOUS *Reorder from [employer] for eRx and Interaction Alerts* 10/22/2023 Active Lisinopril 5 MG Tablet Oral 10/22/2023 Active HYDROcodone-Acetamin ophen 5-325 MG Tablet Oral 10/22/2023 Not-Taking Aspirin-Dipyridamole ER 25-200 mg Capsule Extended Release 12 Hour Oral 10/22/2023 Active TRULICITY 4.5 MG/0.5 ML SUBCUTANEOUS PEN INJECTOR *Reorder from [facility] for eRx and Interaction Alerts* 10/22/2023 Not-Taking HumaLOG KwikPen 100 UNIT/ML Solution Pen-injector Subcutaneous 10/22/2023 Active TRULICITY 3 MG/0.5 ML SUBCUTANEOUS PEN INJECTOR *[facility] from [facility] for [facility]Rx and Interaction Alerts* 10/22/2023 Not-Taking Mounjaro 7.5 MG/0.5ML Solution Pen-injector Subcutaneous *[facility] from [facility] for eRx and Interaction Alerts* 10/22/2023 Active Immunizations Vaccine Route Administration Date Status Comme nts Influenza virus vaccine, quadrivalent (IIV4), split virus, 0.25 mL dosage Unknown 04/28/2021 Administered Influenza, live, intranasal Unknown 04/01/2022 Administ ered Influenza, unspecified formulation Unknown 02/25/2023 A dministered Moderna Covid-19 Vaccine 1st dose Unknown 10/15/2019 Ad ministered Pfizer Biontech Covid-19 Vac cine 2nd dose Unknown 10/14/2020 Administered Pfizer [employer] Covid-19 Vac cine 2nd dose Unknown 11/04/2020 Administered Varicella Unknown 03/28/2021 Administered Zoster Unknown 04/28/2022 Administered Social History Tobacco Use: Social History Observation Description Date Details (start date - stop date) Former Smoker NA - NA Sex Assigned At : Social History Observation Description Sex Assigned At Female Social History Miscellaneous: Social Info Question Answer Notes Advance Care Planning Are you your own decision-maker Yes Do you have Power of Trust Administrative Assistant for Health or [facility]? No Tobacco Use: Social Info Question Answer Notes Tobacco Control (Standard) Tobacco use: Former smoker Additional Details Category Social Info Options Details Migrated Social History Migrated Social History Alcohol Intake: Occasional 02/19/2022,Tobacco Years: Former smoker 05/29/2021,Smoking Status: 11 07/23/2023 Drug/Alcohol: Do you smoke marijuana? Denies Do you drink alcohol? No Problems Problem Type SNOMED Code ICD Code Onset Dates Problem Status W/U Status Risk Notes Problem Mild recurrent major depression (30400835) Major depressive disorder, recurrent, mild (F33.0) 10/22/19 24 Active confirmed Problem Generalized anxiety disorder (38481856) Generalized anxiety disorder (F41.1) 10/22/19 Active confirmed Problem Posttraumatic stress disorder (09001518) Post-traumatic stress disorder, chronic (F43.12) 10/22/19 Active confirmed Problem Primary insomnia (0139824) Primary insomnia (F51.01) 10/22/19 Active confirmed Problem Screening for cardiovascular system disease (702062773) Encounter for screening for cardiovascular disorders (Z13.6) Active confirmed Problem Depression Screening (973522696) Encounter for screening for depression (Z13.31) Active confirmed Vital Signs Heart Rate 79 /min 01/16/2025 Respiratory Rate 16 /min 01/16/2025 Height-cm 167.64 cm 01/16/2025 Blood pressure diastolic 68 mm Hg 01/16/2025 Weight-kg 112.67 kg 01/16/2025 Height 66.00 in 01/16/2025 Blood pressure systolic 109 mm Hg 01/16/2025 Weight 248.4 lbs 01/16/2025 BMI 40.09 kg/m2 01/16/2025 Encounters Encounter Location Date Provider Diagnosis [facility] [employer] [address] [address] 04/18/2024 Batsheva Curry Major depressive disorder, recurrent, mild F33.0 ; Generalized anxiety disorder F41.1 ; Primary insomnia F51.01 and Post-traumatic stress disorder, chronic F43.12 [facility] [employer] [address] 08/17/2024 Batsheva Curry Major depressive disorder, recurrent, mild F33.0 ; Generalized anxiety disorder F41.1 ; Primary insomnia F51.01 and Post-traumatic stress disorder, chronic F43.12 [facility] [address] 10/17/2024 Batsheva Thery Encounter for screen ing for depression Z13.31 ; Encounter for screening for cardiovascular disorders Z13.6 ; Major depressive disorder, recurrent, mild F33.0 ; Generalized anxiety disorder F41.1 ; Primary insomnia F51.01 and Post-traumatic stress disorder, chronic F43.12 [facility] [employer] [place] [address] [address] 01/16/2025 Batshevavirgilio Curry Encounter for screen ing for depression Z13.31 ; Encounter for screening for cardiovascular disorders Z13.6 ; Major depressive disorder, recurrent, mild F33.0 ; Generalized anxiety disorder F41.1 ; Primary insomnia F51.01 and Post-traumatic stress disorder, chronic F43.12 [facility] [address] [place] [address] 07/17/2024 Batsheva Therbozena [facility] [place] [address] [place] [address] 08/06/2024 Batsheva Therbozena [facility] [employer] [place] [address] [place] [address] 10/13/2024 Batsheva Curry Assessments Encounter Date Diagnosis (ICD Code) Assessment Notes Treatment Notes Treatment Clinical Notes Section Notes 08/17/2024 Major depressive disorder, recurrent, mild (ICD-10 - F33.0) 1. major depression - having increase in depression Sertraline 100 mg daily increase Abilify 7.5 mg at bedtime Cymbalta 60 mg in am Lamotrigine 200 mg twice a day labs PCP AIMS =0 11/17/21 AIMS =0 12/31/22 AIMS= 0 07/23/23 missing teeth couple top left AIMS= 0 08/17/24 educated on all medications, benefits, side effects and risk, and educated on depression, anxiety, and ADHD, mood d/o and educated on compliance of medications, metabolic and movement d/o education appointment's, continue therapy discussion with patient about course of treatmentand patient instructions. Lamotrigine lamotrigine has a serious rashes requiring hospitalization and discontinue treatment including Rigoberto Nicho syndrome rare case of toxic epidermal necrolysis and cache related deaths. Incidence with adjunct of epilepsy treatment 0.8% in 2 to 16 years old and 0.3% in adults, bipolar and other mood disorders incidence 0.8% this initial monotherapy and 0.13% as adjunctive treatment. Other risk factor may include concomitant use of valproate acid derivative or exceeding initial lamotrigine does or does as clinician recommendation; most life-threatening rash of occurring first 2 to 8 week of treatment with isolated cases after prolonged treatment; though benign may occur, discontinue treatment at first sign of rash unless clearly not a drug related; TC treatment may not prevent trash from becoming life-threatening or permanently disabling or disfiguring. Comment reaction include, nausea/vomiting, dizziness/vertigo, visual disturbances, somnolence, ataxia, pruritus/rash, pharyngitis, headache, rhinitis, diarrhea, fever, asthenia, insomnia, tremor, abdominal pain, cough, accidental injury, constipation, dysmenorrhea, incoordination, anxiety, seizures, irritability, anorexia, xerostomia, and photosensitivity. Serious reactions include: Rash, severe; Moses Nicho syndrome; toxic epidermal necrosis; injury edema, hypersensitivity reactions. Including fatal, multiple organ failure to safe fatal, rash with eosinophilia systemic symptoms, DIC, neutropenia, leukopenia, thrombocytopenia, pancytopenia, aplastic anemia, hemolytic anemia, i pancreatitis, hepatic failure, rhabdomyolysis, worsening of suicidal ideation, worsening of depression, cleft lip/palate [first trimester use] DO not Change Cosmetic, perfumes or soap for next 4 weeks. The patient was advice to take lamotrigine as prescribed the patient was instructed not to deviate from the prescription dosages. Stop lamotrigine is the first sign of rash. Patient was insisted to inform office if any of the serious side effect develops. discuss importance of having preventive care mammograms, PAP, colonoscopy and vaccines and routine care - reported mammogram ordered by PCP 2. Generalized anxiety disorder -Buspar 30 mg twice a day Sertraline 100 mg daily SSRI/SNRI side effects discussed including but not limited to, gastric upset, nausea, vomiting, diarrhea and/or constipation, weight changes, sexual side effects including loss of libido, increased suicidal thoughts/behaviors in children and young adults, and serotonin syndrome.Second generation antipsychotics (SGAs) have metabolic syndrome issues with weight gain, increase in prolactin, increased waist circumference, increased lipids, and increased glucose. Thus routine monitoring of weight, metabolic labs, etc. is indicated. A general rank ordering of antipsychotics that have the greatest to the least risk of metabolic effects is olanzapine, quetiapine, risperidone, ziprasidone, and aripiprazole. However, weight gain can occur with all of these drugs and considerable variability exists among patients receiving the same drug regarding the risk of metabolic effects. Anti-psychotic agents not only increase the risk of metabolic disorder, they also increase the risk of CVA, akathisia, and movement disorders including EPS or tardive dyskinesia (more common with first generation antipsychotics) and more. 3. Primary insomnia -Trazodone 25-50 mg at bedtime as needed for sleep - not taken often Medication Management and Follow-Up- Plan:- Schedule follow-up appointments every 2-3 months to monitor the patient's response to the medication regimen.- Reinforce the importance of avoiding recreational drug use due to potential neurotoxicity and interactions with prescribed medications. 4. Chronic post-traumatic stress disorder -in therapy stable 5. Long-term drug therapy 01/16/2025 Encounter for screening for depression (ICD-10 - Z13.31) 1. major depression - depression Sertraline 100 mg daily decrease Abilify 5 mg at bedtime Cymbalta 60 mg in am Lamotrigine 200 mg twice a day- discuss on higher dose discuss and educated on all rx seeing PCP 01/18/25 for medical concerns AIMS =0 11/17/21 AIMS =0 12/31/22 AIMS= 0 07/23/23 missing teeth couple top left AIMS= 0 08/17/24 educated on all medications, benefits, side effects and risk, and educated on depression, anxiety, and ADHD, mood d/o and educated on compliance of medications, metabolic and movement d/o education appointment's, continue therapy discussion with patient about course of treatmentand patient instructions. Lamotrigine lamotrigine has a serious rashes requiring hospitalization and discontinue treatment including Rigoberto Nicho syndrome rare case of toxic epidermal necrolysis and cache related deaths. Incidence with adjunct of epilepsy treatment 0.8% in 2 to 16 years old and 0.3% in adults, bipolar and other mood disorders incidence 0.8% this initial monotherapy and 0.13% as adjunctive treatment. Other risk factor may include concomitant use of valproate acid derivative or exceeding initial lamotrigine does or does as clinician recommendation; most life-threatening rash of occurring first 2 to 8 week of treatment with isolated cases after prolonged treatment; though benign may occur, discontinue treatment at first sign of rash unless clearly not a drug related; TC treatment may not prevent trash from becoming life-threatening or permanently disabling or disfiguring. Comment reaction include, nausea/vomiting, dizziness/vertigo, visual disturbances, somnolence, ataxia, pruritus/rash, pharyngitis, headache, rhinitis, diarrhea, fever, asthenia, insomnia, tremor, abdominal pain, cough, accidental injury, constipation, dysmenorrhea, incoordination, anxiety, seizures, irritability, anorexia, xerostomia, and photosensitivity. Serious reactions include: Rash, severe; Moses Nicho syndrome; toxic epidermal necrosis; injury edema, hypersensitivity reactions. Including fatal, multiple organ failure to safe fatal, rash with eosinophilia systemic symptoms, DIC, neutropenia, leukopenia, thrombocytopenia, pancytopenia, aplastic anemia, hemolytic anemia, i pancreatitis, hepatic failure, rhabdomyolysis, worsening of suicidal ideation, worsening of depression, cleft lip/palate [first trimester use] DO not Change Cosmetic, perfumes or soap for next 4 weeks. The patient was advice to take lamotrigine as prescribed the patient was instructed not to deviate from the prescription dosages. Stop lamotrigine is the first sign of rash. Patient was insisted to inform office if any of the serious side effect develops. discuss importance of having preventive care mammograms, PAP, colonoscopy and vaccines and routine care - reported mammogram ordered by PCP 2. Generalized anxiety disorder - Discuss on higher dose Buspar Buspar 30 mg twice a day Sertraline 100 mg daily SSRI/SNRI side effects discussed including but not limited to, gastric upset, nausea, vomiting, diarrhea and/or constipation, weight changes, sexual side effects including loss of libido, increased suicidal thoughts/behaviors in children and young adults, and serotonin syndrome.Second generation antipsychotics (SGAs) have metabolic syndrome issues with weight gain, increase in prolactin, increased waist circumference, increased lipids, and increased glucose. Thus routine monitoring of weight, metabolic labs, etc. is indicated. A general rank ordering of antipsychotics that have the greatest to the least risk of metabolic effects is olanzapine, quetiapine, risperidone, ziprasidone, and aripiprazole. However, weight gain can occur with all of these drugs and considerable variability exists among patients receiving the same drug regarding the risk of metabolic effects. Anti-psychotic agents not only increase the risk of metabolic disorder, they also increase the risk of CVA, akathisia, and movement disorders including EPS or tardive dyskinesia (more common with first generation antipsychotics) and more. 3. Primary insomnia -Trazodone 25-50 mg at bedtime as needed for sleep - not taken - will D/C Medication Management and Follow-Up- Plan:- Schedule follow-up appointments every 2-3 months to monitor the patient's response to the medication regimen.- Reinforce the importance of avoiding recreational drug use due to potential neurotoxicity and interactions with prescribed medications. 4. Chronic post-traumatic stress disorder -in therapy stable 5. Long-term drug therapy 10/17/2024 Encounter for screening for depression (ICD-10 - Z13.31) 1. major depression - improved depression Sertraline 100 mg daily Abilify 7.5 mg at bedtime Cymbalta 60 mg in am Lamotrigine 200 mg twice a day labs PCP AIMS =0 11/17/21 AIMS =0 12/31/22 AIMS= 0 07/23/23 missing teeth couple top left AIMS= 0 08/17/24 educated on all medications, benefits, side effects and risk, and educated on depression, anxiety, and ADHD, mood d/o and educated on compliance of medications, metabolic and movement d/o education appointment's, continue therapy discussion with patient about course of treatmentand patient instructions. Lamotrigine lamotrigine has a serious rashes requiring hospitalization and discontinue treatment including Rigoberto Nicho syndrome rare case of toxic epidermal necrolysis and cache related deaths. Incidence with adjunct of epilepsy treatment 0.8% in 2 to 16 years old and 0.3% in adults, bipolar and other mood disorders incidence 0.8% this initial monotherapy and 0.13% as adjunctive treatment. Other risk factor may include concomitant use of valproate acid derivative or exceeding initial lamotrigine does or does as clinician recommendation; most life-threatening rash of occurring first 2 to 8 week of treatment with isolated cases after prolonged treatment; though benign may occur, discontinue treatment at first sign of rash unless clearly not a drug related; TC treatment may not prevent trash from becoming life-threatening or permanently disabling or disfiguring. Comment reaction include, nausea/vomiting, dizziness/vertigo, visual disturbances, somnolence, ataxia, pruritus/rash, pharyngitis, headache, rhinitis, diarrhea, fever, asthenia, insomnia, tremor, abdominal pain, cough, accidental injury, constipation, dysmenorrhea, incoordination, anxiety, seizures, irritability, anorexia, xerostomia, and photosensitivity. Serious reactions include: Rash, severe; Moses Nicho syndrome; toxic epidermal necrosis; injury edema, hypersensitivity reactions. Including fatal, multiple organ failure to safe fatal, rash with eosinophilia systemic symptoms, DIC, neutropenia, leukopenia, thrombocytopenia, pancytopenia, aplastic anemia, hemolytic anemia, i pancreatitis, hepatic failure, rhabdomyolysis, worsening of suicidal ideation, worsening of depression, cleft lip/palate [first trimester use] DO not Change Cosmetic, perfumes or soap for next 4 weeks. The patient was advice to take lamotrigine as prescribed the patient was instructed not to deviate from the prescription dosages. Stop lamotrigine is the first sign of rash. Patient was insisted to inform office if any of the serious side effect develops. discuss importance of having preventive care mammograms, PAP, colonoscopy and vaccines and routine care - reported mammogram ordered by PCP 2. Generalized anxiety disorder -Buspar 30 mg twice a day Sertraline 100 mg daily SSRI/SNRI side effects discussed including but not limited to, gastric upset, nausea, vomiting, diarrhea and/or constipation, weight changes, sexual side effects including loss of libido, increased suicidal thoughts/behaviors in children and young adults, and serotonin syndrome.Second generation antipsychotics (SGAs) have metabolic syndrome issues with weight gain, increase in prolactin, increased waist circumference, increased lipids, and increased glucose. Thus routine monitoring of weight, metabolic labs, etc. is indicated. A general rank ordering of antipsychotics that have the greatest to the least risk of metabolic effects is olanzapine, quetiapine, risperidone, ziprasidone, and aripiprazole. However, weight gain can occur with all of these drugs and considerable variability exists among patients receiving the same drug regarding the risk of metabolic effects. Anti-psychotic agents not only increase the risk of metabolic disorder, they also increase the risk of CVA, akathisia, and movement disorders including EPS or tardive dyskinesia (more common with first generation antipsychotics) and more. 3. Primary insomnia -Trazodone 25-50 mg at bedtime as needed for sleep - not taken often Medication Management and Follow-Up- Plan:- Schedule follow-up appointments every 2-3 months to monitor the patient's response to the medication regimen.- Reinforce the importance of avoiding recreational drug use due to potential neurotoxicity and interactions with prescribed medications. 4. Chronic post-traumatic stress disorder -in therapy stable 5. Long-term drug therapy 04/18/2024 Major depressive disorder, recurrent, mild (ICD-10 - F33.0) 1. Mild recurrent major depression - Sertraline 100 mg daily Abilify 5 mg at bedtime Cymbalta 60 mg in am Lamotrigine 200 mg twice a day labs reviewed with patient completed 08/04/23 patient will see PCP 11/02/23 and discuss labs also AIMS =0 11/17/21 AIMS =0 12/31/22 AIMS= 0 07/23/23 missing teeth couple top left educated on all medications, benefits, side effects and risk, and educated on depression, anxiety, and ADHD, mood d/o and educated on compliance of medications, metabolic and movement d/o education appointment's, continue therapy discussion with patient about course of treatmentand patient instructions. Lamotrigine lamotrigine has a serious rashes requiring hospitalization and discontinue treatment including Rigoberto Nicho syndrome rare case of toxic epidermal necrolysis and cache related deaths. Incidence with adjunct of epilepsy treatment 0.8% in 2 to 16 years old and 0.3% in adults, bipolar and other mood disorders incidence 0.8% this initial monotherapy and 0.13% as adjunctive treatment. Other risk factor may include concomitant use of valproate acid derivative or exceeding initial lamotrigine does or does as clinician recommendation; most life-threatening rash of occurring first 2 to 8 week of treatment with isolated cases after prolonged treatment; though benign may occur, discontinue treatment at first sign of rash unless clearly not a drug related; TC treatment may not prevent trash from becoming life-threatening or permanently disabling or disfiguring. Comment reaction include, nausea/vomiting, dizziness/vertigo, visual disturbances, somnolence, ataxia, pruritus/rash, pharyngitis, headache, rhinitis, diarrhea, fever, asthenia, insomnia, tremor, abdominal pain, cough, accidental injury, constipation, dysmenorrhea, incoordination, anxiety, seizures, irritability, anorexia, xerostomia, and photosensitivity. Serious reactions include: Rash, severe; Moses Nicho syndrome; toxic epidermal necrosis; injury edema, hypersensitivity reactions. Including fatal, multiple organ failure to safe fatal, rash with eosinophilia systemic symptoms, DIC, neutropenia, leukopenia, thrombocytopenia, pancytopenia, aplastic anemia, hemolytic anemia, i pancreatitis, hepatic failure, rhabdomyolysis, worsening of suicidal ideation, worsening of depression, cleft lip/palate [first trimester use] DO not Change Cosmetic, perfumes or soap for next 4 weeks. The patient was advice to take lamotrigine as prescribed the patient was instructed not to deviate from the prescription dosages. Stop lamotrigine is the first sign of rash. Patient was insisted to inform office if any of the serious side effect develops. discuss importance of having preventive care mammograms, PAP, colonoscopy and vaccines and routine care - reported mammogram ordered by PCP 2. Generalized anxiety disorder -Buspar 30 mg twice a day Sertraline 100 mg daily SSRI/SNRI side effects discussed including but not limited to, gastric upset, nausea, vomiting, diarrhea and/or constipation, weight changes, sexual side effects including loss of libido, increased suicidal thoughts/behaviors in children and young adults, and serotonin syndrome.Second generation antipsychotics (SGAs) have metabolic syndrome issues with weight gain, increase in prolactin, increased waist circumference, increased lipids, and increased glucose. Thus routine monitoring of weight, metabolic labs, etc. is indicated. A general rank ordering of antipsychotics that have the greatest to the least risk of metabolic effects is olanzapine, quetiapine, risperidone, ziprasidone, and aripiprazole. However, weight gain can occur with all of these drugs and considerable variability exists among patients receiving the same drug regarding the risk of metabolic effects. Anti-psychotic agents not only increase the risk of metabolic disorder, they also increase the risk of CVA, akathisia, and movement disorders including EPS or tardive dyskinesia (more common with first generation antipsychotics) and more. 3. Primary insomnia -Trazodone 25-50 mg at bedtime as needed for sleep - not taken often Medication Management and Follow-Up- Plan:- Schedule follow-up appointments every 2-3 months to monitor the patient's response to the medication regimen.- Reinforce the importance of avoiding recreational drug use due to potential neurotoxicity and interactions with prescribed medications. 4. Chronic post-traumatic stress disorder -in therapy stable 5. Long-term drug therapy 04/18/2024 Generalized anxiety disorder (ICD-10 - F41.1) 1. Mild recurrent major depression - Sertraline 100 mg daily Abilify 5 mg at bedtime Cymbalta 60 mg in am Lamotrigine 200 mg twice a day labs reviewed with patient completed 08/04/23 patient will see PCP 11/02/23 and discuss labs also AIMS =0 11/17/21 AIMS =0 12/31/22 AIMS= 0 07/23/23 missing teeth couple top left educated on all medications, benefits, side effects and risk, and educated on depression, anxiety, and ADHD, mood d/o and educated on compliance of medications, metabolic and movement d/o education appointment's, continue therapy discussion with patient about course of treatmentand patient instructions. Lamotrigine lamotrigine has a serious rashes requiring hospitalization and discontinue treatment including Rigoberto Nicho syndrome rare case of toxic epidermal necrolysis and cache related deaths. Incidence with adjunct of epilepsy treatment 0.8% in 2 to 16 years old and 0.3% in adults, bipolar and other mood disorders incidence 0.8% this initial monotherapy and 0.13% as adjunctive treatment. Other risk factor may include concomitant use of valproate acid derivative or exceeding initial lamotrigine does or does as clinician recommendation; most life-threatening rash of occurring first 2 to 8 week of treatment with isolated cases after prolonged treatment; though benign may occur, discontinue treatment at first sign of rash unless clearly not a drug related; TC treatment may not prevent trash from becoming life-threatening or permanently disabling or disfiguring. Comment reaction include, nausea/vomiting, dizziness/vertigo, visual disturbances, somnolence, ataxia, pruritus/rash, pharyngitis, headache, rhinitis, diarrhea, fever, asthenia, insomnia, tremor, abdominal pain, cough, accidental injury, constipation, dysmenorrhea, incoordination, anxiety, seizures, irritability, anorexia, xerostomia, and photosensitivity. Serious reactions include: Rash, severe; Moses Nicho syndrome; toxic epidermal necrosis; injury edema, hypersensitivity reactions. Including fatal, multiple organ failure to safe fatal, rash with eosinophilia systemic symptoms, DIC, neutropenia, leukopenia, thrombocytopenia, pancytopenia, aplastic anemia, hemolytic anemia, i pancreatitis, hepatic failure, rhabdomyolysis, worsening of suicidal ideation, worsening of depression, cleft lip/palate [first trimester use] DO not Change Cosmetic, perfumes or soap for next 4 weeks. The patient was advice to take lamotrigine as prescribed the patient was instructed not to deviate from the prescription dosages. Stop lamotrigine is the first sign of rash. Patient was insisted to inform office if any of the serious side effect develops. discuss importance of having preventive care mammograms, PAP, colonoscopy and vaccines and routine care - reported mammogram ordered by PCP 2. Generalized anxiety disorder -Buspar 30 mg twice a day Sertraline 100 mg daily SSRI/SNRI side effects discussed including but not limited to, gastric upset, nausea, vomiting, diarrhea and/or constipation, weight changes, sexual side effects including loss of libido, increased suicidal thoughts/behaviors in children and young adults, and serotonin syndrome.Second generation antipsychotics (SGAs) have metabolic syndrome issues with weight gain, increase in prolactin, increased waist circumference, increased lipids, and increased glucose. Thus routine monitoring of weight, metabolic labs, etc. is indicated. A general rank ordering of antipsychotics that have the greatest to the least risk of metabolic effects is olanzapine, quetiapine, risperidone, ziprasidone, and aripiprazole. However, weight gain can occur with all of these drugs and considerable variability exists among patients receiving the same drug regarding the risk of metabolic effects. Anti-psychotic agents not only increase the risk of metabolic disorder, they also increase the risk of CVA, akathisia, and movement disorders including EPS or tardive dyskinesia (more common with first generation antipsychotics) and more. 3. Primary insomnia -Trazodone 25-50 mg at bedtime as needed for sleep - not taken often Medication Management and Follow-Up- Plan:- Schedule follow-up appointments every 2-3 months to monitor the patient's response to the medication regimen.- Reinforce the importance of avoiding recreational drug use due to potential neurotoxicity and interactions with prescribed medications. 4. Chronic post-traumatic stress disorder -in therapy stable 5. Long-term drug therapy 08/17/2024 Generalized anxiety disorder (ICD-10 - F41.1) 1. major depression - having increase in depression Sertraline 100 mg daily increase Abilify 7.5 mg at bedtime Cymbalta 60 mg in am Lamotrigine 200 mg twice a day labs PCP AIMS =0 11/17/21 AIMS =0 12/31/22 AIMS= 0 07/23/23 missing teeth couple top left AIMS= 0 08/17/24 educated on all medications, benefits, side effects and risk, and educated on depression, anxiety, and ADHD, mood d/o and educated on compliance of medications, metabolic and movement d/o education appointment's, continue therapy discussion with patient about course of treatmentand patient instructions. Lamotrigine lamotrigine has a serious rashes requiring hospitalization and discontinue treatment including Rigoberto Nicho syndrome rare case of toxic epidermal necrolysis and cache related deaths. Incidence with adjunct of epilepsy treatment 0.8% in 2 to 16 years old and 0.3% in adults, bipolar and other mood disorders incidence 0.8% this initial monotherapy and 0.13% as adjunctive treatment. Other risk factor may include concomitant use of valproate acid derivative or exceeding initial lamotrigine does or does as clinician recommendation; most life-threatening rash of occurring first 2 to 8 week of treatment with isolated cases after prolonged treatment; though benign may occur, discontinue treatment at first sign of rash unless clearly not a drug related; TC treatment may not prevent trash from becoming life-threatening or permanently disabling or disfiguring. Comment reaction include, nausea/vomiting, dizziness/vertigo, visual disturbances, somnolence, ataxia, pruritus/rash, pharyngitis, headache, rhinitis, diarrhea, fever, asthenia, insomnia, tremor, abdominal pain, cough, accidental injury, constipation, dysmenorrhea, incoordination, anxiety, seizures, irritability, anorexia, xerostomia, and photosensitivity. Serious reactions include: Rash, severe; Moses Nicho syndrome; toxic epidermal necrosis; injury edema, hypersensitivity reactions. Including fatal, multiple organ failure to safe fatal, rash with eosinophilia systemic symptoms, DIC, neutropenia, leukopenia, thrombocytopenia, pancytopenia, aplastic anemia, hemolytic anemia, i pancreatitis, hepatic failure, rhabdomyolysis, worsening of suicidal ideation, worsening of depression, cleft lip/palate [first trimester use] DO not Change Cosmetic, perfumes or soap for next 4 weeks. The patient was advice to take lamotrigine as prescribed the patient was instructed not to deviate from the prescription dosages. Stop lamotrigine is the first sign of rash. Patient was insisted to inform office if any of the serious side effect develops. discuss importance of having preventive care mammograms, PAP, colonoscopy and vaccines and routine care - reported mammogram ordered by PCP 2. Generalized anxiety disorder -Buspar 30 mg twice a day Sertraline 100 mg daily SSRI/SNRI side effects discussed including but not limited to, gastric upset, nausea, vomiting, diarrhea and/or constipation, weight changes, sexual side effects including loss of libido, increased suicidal thoughts/behaviors in children and young adults, and serotonin syndrome.Second generation antipsychotics (SGAs) have metabolic syndrome issues with weight gain, increase in prolactin, increased waist circumference, increased lipids, and increased glucose. Thus routine monitoring of weight, metabolic labs, etc. is indicated. A general rank ordering of antipsychotics that have the greatest to the least risk of metabolic effects is olanzapine, quetiapine, risperidone, ziprasidone, and aripiprazole. However, weight gain can occur with all of these drugs and considerable variability exists among patients receiving the same drug regarding the risk of metabolic effects. Anti-psychotic agents not only increase the risk of metabolic disorder, they also increase the risk of CVA, akathisia, and movement disorders including EPS or tardive dyskinesia (more common with first generation antipsychotics) and more. 3. Primary insomnia -Trazodone 25-50 mg at bedtime as needed for sleep - not taken often Medication Management and Follow-Up- Plan:- Schedule follow-up appointments every 2-3 months to monitor the patient's response to the medication regimen.- Reinforce the importance of avoiding recreational drug use due to potential neurotoxicity and interactions with prescribed medications. 4. Chronic post-traumatic stress disorder -in therapy stable 5. Long-term drug therapy 01/16/2025 Encounter for screening for cardiovascular disorders (ICD-10 - Z13.6) 1. major depression - depression Sertraline 100 mg daily decrease Abilify 5 mg at bedtime Cymbalta 60 mg in am Lamotrigine 200 mg twice a day- discuss on higher dose discuss and educated on all rx seeing PCP 01/18/25 for medical concerns AIMS =0 11/17/21 AIMS =0 12/31/22 AIMS= 0 07/23/23 missing teeth couple top left AIMS= 0 08/17/24 educated on all medications, benefits, side effects and risk, and educated on depression, anxiety, and ADHD, mood d/o and educated on compliance of medications, metabolic and movement d/o education appointment's, continue therapy discussion with patient about course of treatmentand patient instructions. Lamotrigine lamotrigine has a serious rashes requiring hospitalization and discontinue treatment including Rigoberto Nicho syndrome rare case of toxic epidermal necrolysis and cache related deaths. Incidence with adjunct of epilepsy treatment 0.8% in 2 to 16 years old and 0.3% in adults, bipolar and other mood disorders incidence 0.8% this initial monotherapy and 0.13% as adjunctive treatment. Other risk factor may include concomitant use of valproate acid derivative or exceeding initial lamotrigine does or does as clinician recommendation; most life-threatening rash of occurring first 2 to 8 week of treatment with isolated cases after prolonged treatment; though benign may occur, discontinue treatment at first sign of rash unless clearly not a drug related; TC treatment may not prevent trash from becoming life-threatening or permanently disabling or disfiguring. Comment reaction include, nausea/vomiting, dizziness/vertigo, visual disturbances, somnolence, ataxia, pruritus/rash, pharyngitis, headache, rhinitis, diarrhea, fever, asthenia, insomnia, tremor, abdominal pain, cough, accidental injury, constipation, dysmenorrhea, incoordination, anxiety, seizures, irritability, anorexia, xerostomia, and photosensitivity. Serious reactions include: Rash, severe; Moses Nicho syndrome; toxic epidermal necrosis; injury edema, hypersensitivity reactions. Including fatal, multiple organ failure to safe fatal, rash with eosinophilia systemic symptoms, DIC, neutropenia, leukopenia, thrombocytopenia, pancytopenia, aplastic anemia, hemolytic anemia, i pancreatitis, hepatic failure, rhabdomyolysis, worsening of suicidal ideation, worsening of depression, cleft lip/palate [first trimester use] DO not Change Cosmetic, perfumes or soap for next 4 weeks. The patient was advice to take lamotrigine as prescribed the patient was instructed not to deviate from the prescription dosages. Stop lamotrigine is the first sign of rash. Patient was insisted to inform office if any of the serious side effect develops. discuss importance of having preventive care mammograms, PAP, colonoscopy and vaccines and routine care - reported mammogram ordered by PCP 2. Generalized anxiety disorder - Discuss on higher dose Buspar Buspar 30 mg twice a day Sertraline 100 mg daily SSRI/SNRI side effects discussed including but not limited to, gastric upset, nausea, vomiting, diarrhea and/or constipation, weight changes, sexual side effects including loss of libido, increased suicidal thoughts/behaviors in children and young adults, and serotonin syndrome.Second generation antipsychotics (SGAs) have metabolic syndrome issues with weight gain, increase in prolactin, increased waist circumference, increased lipids, and increased glucose. Thus routine monitoring of weight, metabolic labs, etc. is indicated. A general rank ordering of antipsychotics that have the greatest to the least risk of metabolic effects is olanzapine, quetiapine, risperidone, ziprasidone, and aripiprazole. However, weight gain can occur with all of these drugs and considerable variability exists among patients receiving the same drug regarding the risk of metabolic effects. Anti-psychotic agents not only increase the risk of metabolic disorder, they also increase the risk of CVA, akathisia, and movement disorders including EPS or tardive dyskinesia (more common with first generation antipsychotics) and more. 3. Primary insomnia -Trazodone 25-50 mg at bedtime as needed for sleep - not taken - will D/C Medication Management and Follow-Up- Plan:- Schedule follow-up appointments every 2-3 months to monitor the patient's response to the medication regimen.- Reinforce the importance of avoiding recreational drug use due to potential neurotoxicity and interactions with prescribed medications. 4. Chronic post-traumatic stress disorder -in therapy stable 5. Long-term drug therapy 10/17/2024 Encounter for screening for cardiovascular disorders (ICD-10 - Z13.6) 1. major depression - improved depression Sertraline 100 mg daily Abilify 7.5 mg at bedtime Cymbalta 60 mg in am Lamotrigine 200 mg twice a day labs PCP AIMS =0 11/17/21 AIMS =0 12/31/22 AIMS= 0 07/23/23 missing teeth couple top left AIMS= 0 08/17/24 educated on all medications, benefits, side effects and risk, and educated on depression, anxiety, and ADHD, mood d/o and educated on compliance of medications, metabolic and movement d/o education appointment's, continue therapy discussion with patient about course of treatmentand patient instructions. Lamotrigine lamotrigine has a serious rashes requiring hospitalization and discontinue treatment including Rigoberto Nicho syndrome rare case of toxic epidermal necrolysis and cache related deaths. Incidence with adjunct of epilepsy treatment 0.8% in 2 to 16 years old and 0.3% in adults, bipolar and other mood disorders incidence 0.8% this initial monotherapy and 0.13% as adjunctive treatment. Other risk factor may include concomitant use of valproate acid derivative or exceeding initial lamotrigine does or does as clinician recommendation; most life-threatening rash of occurring first 2 to 8 week of treatment with isolated cases after prolonged treatment; though benign may occur, discontinue treatment at first sign of rash unless clearly not a drug related; TC treatment may not prevent trash from becoming life-threatening or permanently disabling or disfiguring. Comment reaction include, nausea/vomiting, dizziness/vertigo, visual disturbances, somnolence, ataxia, pruritus/rash, pharyngitis, headache, rhinitis, diarrhea, fever, asthenia, insomnia, tremor, abdominal pain, cough, accidental injury, constipation, dysmenorrhea, incoordination, anxiety, seizures, irritability, anorexia, xerostomia, and photosensitivity. Serious reactions include: Rash, severe; Moses Nicho syndrome; toxic epidermal necrosis; injury edema, hypersensitivity reactions. Including fatal, multiple organ failure to safe fatal, rash with eosinophilia systemic symptoms, DIC, neutropenia, leukopenia, thrombocytopenia, pancytopenia, aplastic anemia, hemolytic anemia, i pancreatitis, hepatic failure, rhabdomyolysis, worsening of suicidal ideation, worsening of depression, cleft lip/palate [first trimester use] DO not Change Cosmetic, perfumes or soap for next 4 weeks. The patient was advice to take lamotrigine as prescribed the patient was instructed not to deviate from the prescription dosages. Stop lamotrigine is the first sign of rash. Patient was insisted to inform office if any of the serious side effect develops. discuss importance of having preventive care mammograms, PAP, colonoscopy and vaccines and routine care - reported mammogram ordered by PCP 2. Generalized anxiety disorder -Buspar 30 mg twice a day Sertraline 100 mg daily SSRI/SNRI side effects discussed including but not limited to, gastric upset, nausea, vomiting, diarrhea and/or constipation, weight changes, sexual side effects including loss of libido, increased suicidal thoughts/behaviors in children and young adults, and serotonin syndrome.Second generation antipsychotics (SGAs) have metabolic syndrome issues with weight gain, increase in prolactin, increased waist circumference, increased lipids, and increased glucose. Thus routine monitoring of weight, metabolic labs, etc. is indicated. A general rank ordering of antipsychotics that have the greatest to the least risk of metabolic effects is olanzapine, quetiapine, risperidone, ziprasidone, and aripiprazole. However, weight gain can occur with all of these drugs and considerable variability exists among patients receiving the same drug regarding the risk of metabolic effects. Anti-psychotic agents not only increase the risk of metabolic disorder, they also increase the risk of CVA, akathisia, and movement disorders including EPS or tardive dyskinesia (more common with first generation antipsychotics) and more. 3. Primary insomnia -Trazodone 25-50 mg at bedtime as needed for sleep - not taken often Medication Management and Follow-Up- Plan:- Schedule follow-up appointments every 2-3 months to monitor the patient's response to the medication regimen.- Reinforce the importance of avoiding recreational drug use due to potential neurotoxicity and interactions with prescribed medications. 4. Chronic post-traumatic stress disorder -in therapy stable 5. Long-term drug therapy 04/18/2024 Primary insomnia (ICD-10 - F51.01) 1. Mild recurrent major depression - Sertraline 100 mg daily Abilify 5 mg at bedtime Cymbalta 60 mg in am Lamotrigine 200 mg twice a day labs reviewed with patient completed 08/04/23 patient will see PCP 11/02/23 and discuss labs also AIMS =0 11/17/21 AIMS =0 12/31/22 AIMS= 0 07/23/23 missing teeth couple top left educated on all medications, benefits, side effects and risk, and educated on depression, anxiety, and ADHD, mood d/o and educated on compliance of medications, metabolic and movement d/o education appointment's, continue therapy discussion with patient about course of treatmentand patient instructions. Lamotrigine lamotrigine has a serious rashes requiring hospitalization and discontinue treatment including Rigoberto Nicho syndrome rare case of toxic epidermal necrolysis and cache related deaths. Incidence with adjunct of epilepsy treatment 0.8% in 2 to 16 years old and 0.3% in adults, bipolar and other mood disorders incidence 0.8% this initial monotherapy and 0.13% as adjunctive treatment. Other risk factor may include concomitant use of valproate acid derivative or exceeding initial lamotrigine does or does as clinician recommendation; most life-threatening rash of occurring first 2 to 8 week of treatment with isolated cases after prolonged treatment; though benign may occur, discontinue treatment at first sign of rash unless clearly not a drug related; TC treatment may not prevent trash from becoming life-threatening or permanently disabling or disfiguring. Comment reaction include, nausea/vomiting, dizziness/vertigo, visual disturbances, somnolence, ataxia, pruritus/rash, pharyngitis, headache, rhinitis, diarrhea, fever, asthenia, insomnia, tremor, abdominal pain, cough, accidental injury, constipation, dysmenorrhea, incoordination, anxiety, seizures, irritability, anorexia, xerostomia, and photosensitivity. Serious reactions include: Rash, severe; Moses Nicho syndrome; toxic epidermal necrosis; injury edema, hypersensitivity reactions. Including fatal, multiple organ failure to safe fatal, rash with eosinophilia systemic symptoms, DIC, neutropenia, leukopenia, thrombocytopenia, pancytopenia, aplastic anemia, hemolytic anemia, i pancreatitis, hepatic failure, rhabdomyolysis, worsening of suicidal ideation, worsening of depression, cleft lip/palate [first trimester use] DO not Change Cosmetic, perfumes or soap for next 4 weeks. The patient was advice to take lamotrigine as prescribed the patient was instructed not to deviate from the prescription dosages. Stop lamotrigine is the first sign of rash. Patient was insisted to inform office if any of the serious side effect develops. discuss importance of having preventive care mammograms, PAP, colonoscopy and vaccines and routine care - reported mammogram ordered by PCP 2. Generalized anxiety disorder -Buspar 30 mg twice a day Sertraline 100 mg daily SSRI/SNRI side effects discussed including but not limited to, gastric upset, nausea, vomiting, diarrhea and/or constipation, weight changes, sexual side effects including loss of libido, increased suicidal thoughts/behaviors in children and young adults, and serotonin syndrome.Second generation antipsychotics (SGAs) have metabolic syndrome issues with weight gain, increase in prolactin, increased waist circumference, increased lipids, and increased glucose. Thus routine monitoring of weight, metabolic labs, etc. is indicated. A general rank ordering of antipsychotics that have the greatest to the least risk of metabolic effects is olanzapine, quetiapine, risperidone, ziprasidone, and aripiprazole. However, weight gain can occur with all of these drugs and considerable variability exists among patients receiving the same drug regarding the risk of metabolic effects. Anti-psychotic agents not only increase the risk of metabolic disorder, they also increase the risk of CVA, akathisia, and movement disorders including EPS or tardive dyskinesia (more common with first generation antipsychotics) and more. 3. Primary insomnia -Trazodone 25-50 mg at bedtime as needed for sleep - not taken often Medication Management and Follow-Up- Plan:- Schedule follow-up appointments every 2-3 months to monitor the patient's response to the medication regimen.- Reinforce the importance of avoiding recreational drug use due to potential neurotoxicity and interactions with prescribed medications. 4. Chronic post-traumatic stress disorder -in therapy stable 5. Long-term drug therapy 08/17/2024 Primary insomnia (ICD-10 - F51.01) 1. major depression - having increase in depression Sertraline 100 mg daily increase Abilify 7.5 mg at bedtime Cymbalta 60 mg in am Lamotrigine 200 mg twice a day labs PCP AIMS =0 11/17/21 AIMS =0 12/31/22 AIMS= 0 07/23/23 missing teeth couple top left AIMS= 0 08/17/24 educated on all medications, benefits, side effects and risk, and educated on depression, anxiety, and ADHD, mood d/o and educated on compliance of medications, metabolic and movement d/o education appointment's, continue therapy discussion with patient about course of treatmentand patient instructions. Lamotrigine lamotrigine has a serious rashes requiring hospitalization and discontinue treatment including Rigoberto Nicho syndrome rare case of toxic epidermal necrolysis and cache related deaths. Incidence with adjunct of epilepsy treatment 0.8% in 2 to 16 years old and 0.3% in adults, bipolar and other mood disorders incidence 0.8% this initial monotherapy and 0.13% as adjunctive treatment. Other risk factor may include concomitant use of valproate acid derivative or exceeding initial lamotrigine does or does as clinician recommendation; most life-threatening rash of occurring first 2 to 8 week of treatment with isolated cases after prolonged treatment; though benign may occur, discontinue treatment at first sign of rash unless clearly not a drug related; TC treatment may not prevent trash from becoming life-threatening or permanently disabling or disfiguring. Comment reaction include, nausea/vomiting, dizziness/vertigo, visual disturbances, somnolence, ataxia, pruritus/rash, pharyngitis, headache, rhinitis, diarrhea, fever, asthenia, insomnia, tremor, abdominal pain, cough, accidental injury, constipation, dysmenorrhea, incoordination, anxiety, seizures, irritability, anorexia, xerostomia, and photosensitivity. Serious reactions include: Rash, severe; Moses Nicho syndrome; toxic epidermal necrosis; injury edema, hypersensitivity reactions. Including fatal, multiple organ failure to safe fatal, rash with eosinophilia systemic symptoms, DIC, neutropenia, leukopenia, thrombocytopenia, pancytopenia, aplastic anemia, hemolytic anemia, i pancreatitis, hepatic failure, rhabdomyolysis, worsening of suicidal ideation, worsening of depression, cleft lip/palate [first trimester use] DO not Change Cosmetic, perfumes or soap for next 4 weeks. The patient was advice to take lamotrigine as prescribed the patient was instructed not to deviate from the prescription dosages. Stop lamotrigine is the first sign of rash. Patient was insisted to inform office if any of the serious side effect develops. discuss importance of having preventive care mammograms, PAP, colonoscopy and vaccines and routine care - reported mammogram ordered by PCP 2. Generalized anxiety disorder -Buspar 30 mg twice a day Sertraline 100 mg daily SSRI/SNRI side effects discussed including but not limited to, gastric upset, nausea, vomiting, diarrhea and/or constipation, weight changes, sexual side effects including loss of libido, increased suicidal thoughts/behaviors in children and young adults, and serotonin syndrome.Second generation antipsychotics (SGAs) have metabolic syndrome issues with weight gain, increase in prolactin, increased waist circumference, increased lipids, and increased glucose. Thus routine monitoring of weight, metabolic labs, etc. is indicated. A general rank ordering of antipsychotics that have the greatest to the least risk of metabolic effects is olanzapine, quetiapine, risperidone, ziprasidone, and aripiprazole. However, weight gain can occur with all of these drugs and considerable variability exists among patients receiving the same drug regarding the risk of metabolic effects. Anti-psychotic agents not only increase the risk of metabolic disorder, they also increase the risk of CVA, akathisia, and movement disorders including EPS or tardive dyskinesia (more common with first generation antipsychotics) and more. 3. Primary insomnia -Trazodone 25-50 mg at bedtime as needed for sleep - not taken often Medication Management and Follow-Up- Plan:- Schedule follow-up appointments every 2-3 months to monitor the patient's response to the medication regimen.- Reinforce the importance of avoiding recreational drug use due to potential neurotoxicity and interactions with prescribed medications. 4. Chronic post-traumatic stress disorder -in therapy stable 5. Long-term drug therapy 01/16/2025 Major depressive disorder, recurrent, mild (ICD-10 - F33.0) Preventing Depression From Coming Back: Care Instructions material was published, Learning About How to Get Help During a Mental Health Crisis material was published, Learning About Depression Screening material was published, Learning About Depression material was published 1. major depression - depression Sertraline 100 mg daily decrease Abilify 5 mg at bedtime Cymbalta 60 mg in am Lamotrigine 200 mg twice a day- discuss on higher dose discuss and educated on all rx seeing PCP 01/18/25 for medical concerns AIMS =0 11/17/21 AIMS =0 12/31/22 AIMS= 0 07/23/23 missing teeth couple top left AIMS= 0 08/17/24 educated on all medications, benefits, side effects and risk, and educated on depression, anxiety, and ADHD, mood d/o and educated on compliance of medications, metabolic and movement d/o education appointment's, continue therapy discussion with patient about course of treatmentand patient instructions. Lamotrigine lamotrigine has a serious rashes requiring hospitalization and discontinue treatment including Rigoberto Nicho syndrome rare case of toxic epidermal necrolysis and cache related deaths. Incidence with adjunct of epilepsy treatment 0.8% in 2 to 16 years old and 0.3% in adults, bipolar and other mood disorders incidence 0.8% this initial monotherapy and 0.13% as adjunctive treatment. Other risk factor may include concomitant use of valproate acid derivative or exceeding initial lamotrigine does or does as clinician recommendation; most life-threatening rash of occurring first 2 to 8 week of treatment with isolated cases after prolonged treatment; though benign may occur, discontinue treatment at first sign of rash unless clearly not a drug related; TC treatment may not prevent trash from becoming life-threatening or permanently disabling or disfiguring. Comment reaction include, nausea/vomiting, dizziness/vertigo, visual disturbances, somnolence, ataxia, pruritus/rash, pharyngitis, headache, rhinitis, diarrhea, fever, asthenia, insomnia, tremor, abdominal pain, cough, accidental injury, constipation, dysmenorrhea, incoordination, anxiety, seizures, irritability, anorexia, xerostomia, and photosensitivity. Serious reactions include: Rash, severe; Moses Nicho syndrome; toxic epidermal necrosis; injury edema, hypersensitivity reactions. Including fatal, multiple organ failure to safe fatal, rash with eosinophilia systemic symptoms, DIC, neutropenia, leukopenia, thrombocytopenia, pancytopenia, aplastic anemia, hemolytic anemia, i pancreatitis, hepatic failure, rhabdomyolysis, worsening of suicidal ideation, worsening of depression, cleft lip/palate [first trimester use] DO not Change Cosmetic, perfumes or soap for next 4 weeks. The patient was advice to take lamotrigine as prescribed the patient was instructed not to deviate from the prescription dosages. Stop lamotrigine is the first sign of rash. Patient was insisted to inform office if any of the serious side effect develops. discuss importance of having preventive care mammograms, PAP, colonoscopy and vaccines and routine care - reported mammogram ordered by PCP 2. Generalized anxiety disorder - Discuss on higher dose Buspar Buspar 30 mg twice a day Sertraline 100 mg daily SSRI/SNRI side effects discussed including but not limited to, gastric upset, nausea, vomiting, diarrhea and/or constipation, weight changes, sexual side effects including loss of libido, increased suicidal thoughts/behaviors in children and young adults, and serotonin syndrome.Second generation antipsychotics (SGAs) have metabolic syndrome issues with weight gain, increase in prolactin, increased waist circumference, increased lipids, and increased glucose. Thus routine monitoring of weight, metabolic labs, etc. is indicated. A general rank ordering of antipsychotics that have the greatest to the least risk of metabolic effects is olanzapine, quetiapine, risperidone, ziprasidone, and aripiprazole. However, weight gain can occur with all of these drugs and considerable variability exists among patients receiving the same drug regarding the risk of metabolic effects. Anti-psychotic agents not only increase the risk of metabolic disorder, they also increase the risk of CVA, akathisia, and movement disorders including EPS or tardive dyskinesia (more common with first generation antipsychotics) and more. 3. Primary insomnia -Trazodone 25-50 mg at bedtime as needed for sleep - not taken - will D/C Medication Management and Follow-Up- Plan:- Schedule follow-up appointments every 2-3 months to monitor the patient's response to the medication regimen.- Reinforce the importance of avoiding recreational drug use due to potential neurotoxicity and interactions with prescribed medications. 4. Chronic post-traumatic stress disorder -in therapy stable 5. Long-term drug therapy 10/17/2024 Major depressive disorder, recurrent, mild (ICD-10 - F33.0) 1. major depression - improved depression Sertraline 100 mg daily Abilify 7.5 mg at bedtime Cymbalta 60 mg in am Lamotrigine 200 mg twice a day labs PCP AIMS =0 11/17/21 AIMS =0 12/31/22 AIMS= 0 07/23/23 missing teeth couple top left AIMS= 0 08/17/24 educated on all medications, benefits, side effects and risk, and educated on depression, anxiety, and ADHD, mood d/o and educated on compliance of medications, metabolic and movement d/o education appointment's, continue therapy discussion with patient about course of treatmentand patient instructions. Lamotrigine lamotrigine has a serious rashes requiring hospitalization and discontinue treatment including Rigoberto Nicho syndrome rare case of toxic epidermal necrolysis and cache related deaths. Incidence with adjunct of epilepsy treatment 0.8% in 2 to 16 years old and 0.3% in adults, bipolar and other mood disorders incidence 0.8% this initial monotherapy and 0.13% as adjunctive treatment. Other risk factor may include concomitant use of valproate acid derivative or exceeding initial lamotrigine does or does as clinician recommendation; most life-threatening rash of occurring first 2 to 8 week of treatment with isolated cases after prolonged treatment; though benign may occur, discontinue treatment at first sign of rash unless clearly not a drug related; TC treatment may not prevent trash from becoming life-threatening or permanently disabling or disfiguring. Comment reaction include, nausea/vomiting, dizziness/vertigo, visual disturbances, somnolence, ataxia, pruritus/rash, pharyngitis, headache, rhinitis, diarrhea, fever, asthenia, insomnia, tremor, abdominal pain, cough, accidental injury, constipation, dysmenorrhea, incoordination, anxiety, seizures, irritability, anorexia, xerostomia, and photosensitivity. Serious reactions include: Rash, severe; Moses Nicho syndrome; toxic epidermal necrosis; injury edema, hypersensitivity reactions. Including fatal, multiple organ failure to safe fatal, rash with eosinophilia systemic symptoms, DIC, neutropenia, leukopenia, thrombocytopenia, pancytopenia, aplastic anemia, hemolytic anemia, i pancreatitis, hepatic failure, rhabdomyolysis, worsening of suicidal ideation, worsening of depression, cleft lip/palate [first trimester use] DO not Change Cosmetic, perfumes or soap for next 4 weeks. The patient was advice to take lamotrigine as prescribed the patient was instructed not to deviate from the prescription dosages. Stop lamotrigine is the first sign of rash. Patient was insisted to inform office if any of the serious side effect develops. discuss importance of having preventive care mammograms, PAP, colonoscopy and vaccines and routine care - reported mammogram ordered by PCP 2. Generalized anxiety disorder -Buspar 30 mg twice a day Sertraline 100 mg daily SSRI/SNRI side effects discussed including but not limited to, gastric upset, nausea, vomiting, diarrhea and/or constipation, weight changes, sexual side effects including loss of libido, increased suicidal thoughts/behaviors in children and young adults, and serotonin syndrome.Second generation antipsychotics (SGAs) have metabolic syndrome issues with weight gain, increase in prolactin, increased waist circumference, increased lipids, and increased glucose. Thus routine monitoring of weight, metabolic labs, etc. is indicated. A general rank ordering of antipsychotics that have the greatest to the least risk of metabolic effects is olanzapine, quetiapine, risperidone, ziprasidone, and aripiprazole. However, weight gain can occur with all of these drugs and considerable variability exists among patients receiving the same drug regarding the risk of metabolic effects. Anti-psychotic agents not only increase the risk of metabolic disorder, they also increase the risk of CVA, akathisia, and movement disorders including EPS or tardive dyskinesia (more common with first generation antipsychotics) and more. 3. Primary insomnia -Trazodone 25-50 mg at bedtime as needed for sleep - not taken often Medication Management and Follow-Up- Plan:- Schedule follow-up appointments every 2-3 months to monitor the patient's response to the medication regimen.- Reinforce the importance of avoiding recreational drug use due to potential neurotoxicity and interactions with prescribed medications. 4. Chronic post-traumatic stress disorder -in therapy stable 5. Long-term drug therapy 10/17/2024 Generalized anxiety disorder (ICD-10 - F41.1) 1. major depression - improved depression Sertraline 100 mg daily Abilify 7.5 mg at bedtime Cymbalta 60 mg in am Lamotrigine 200 mg twice a day labs PCP AIMS =0 11/17/21 AIMS =0 12/31/22 AIMS= 0 07/23/23 missing teeth couple top left AIMS= 0 08/17/24 educated on all medications, benefits, side effects and risk, and educated on depression, anxiety, and ADHD, mood d/o and educated on compliance of medications, metabolic and movement d/o education appointment's, continue therapy discussion with patient about course of treatmentand patient instructions. Lamotrigine lamotrigine has a serious rashes requiring hospitalization and discontinue treatment including Rigoberto Nicho syndrome rare case of toxic epidermal necrolysis and cache related deaths. Incidence with adjunct of epilepsy treatment 0.8% in 2 to 16 years old and 0.3% in adults, bipolar and other mood disorders incidence 0.8% this initial monotherapy and 0.13% as adjunctive treatment. Other risk factor may include concomitant use of valproate acid derivative or exceeding initial lamotrigine does or does as clinician recommendation; most life-threatening rash of occurring first 2 to 8 week of treatment with isolated cases after prolonged treatment; though benign may occur, discontinue treatment at first sign of rash unless clearly not a drug related; TC treatment may not prevent trash from becoming life-threatening or permanently disabling or disfiguring. Comment reaction include, nausea/vomiting, dizziness/vertigo, visual disturbances, somnolence, ataxia, pruritus/rash, pharyngitis, headache, rhinitis, diarrhea, fever, asthenia, insomnia, tremor, abdominal pain, cough, accidental injury, constipation, dysmenorrhea, incoordination, anxiety, seizures, irritability, anorexia, xerostomia, and photosensitivity. Serious reactions include: Rash, severe; Moses Nicho syndrome; toxic epidermal necrosis; injury edema, hypersensitivity reactions. Including fatal, multiple organ failure to safe fatal, rash with eosinophilia systemic symptoms, DIC, neutropenia, leukopenia, thrombocytopenia, pancytopenia, aplastic anemia, hemolytic anemia, i pancreatitis, hepatic failure, rhabdomyolysis, worsening of suicidal ideation, worsening of depression, cleft lip/palate [first trimester use] DO not Change Cosmetic, perfumes or soap for next 4 weeks. The patient was advice to take lamotrigine as prescribed the patient was instructed not to deviate from the prescription dosages. Stop lamotrigine is the first sign of rash. Patient was insisted to inform office if any of the serious side effect develops. discuss importance of having preventive care mammograms, PAP, colonoscopy and vaccines and routine care - reported mammogram ordered by PCP 2. Generalized anxiety disorder -Buspar 30 mg twice a day Sertraline 100 mg daily SSRI/SNRI side effects discussed including but not limited to, gastric upset, nausea, vomiting, diarrhea and/or constipation, weight changes, sexual side effects including loss of libido, increased suicidal thoughts/behaviors in children and young adults, and serotonin syndrome.Second generation antipsychotics (SGAs) have metabolic syndrome issues with weight gain, increase in prolactin, increased waist circumference, increased lipids, and increased glucose. Thus routine monitoring of weight, metabolic labs, etc. is indicated. A general rank ordering of antipsychotics that have the greatest to the least risk of metabolic effects is olanzapine, quetiapine, risperidone, ziprasidone, and aripiprazole. However, weight gain can occur with all of these drugs and considerable variability exists among patients receiving the same drug regarding the risk of metabolic effects. Anti-psychotic agents not only increase the risk of metabolic disorder, they also increase the risk of CVA, akathisia, and movement disorders including EPS or tardive dyskinesia (more common with first generation antipsychotics) and more. 3. Primary insomnia -Trazodone 25-50 mg at bedtime as needed for sleep - not taken often Medication Management and Follow-Up- Plan:- Schedule follow-up appointments every 2-3 months to monitor the patient's response to the medication regimen.- Reinforce the importance of avoiding recreational drug use due to potential neurotoxicity and interactions with prescribed medications. 4. Chronic post-traumatic stress disorder -in therapy stable 5. Long-term drug therapy 04/18/2024 Post-traumatic stress disorder, chronic (ICD-10 - F43.12) 1. Mild recurrent major depression - Sertraline 100 mg daily Abilify 5 mg at bedtime Cymbalta 60 mg in am Lamotrigine 200 mg twice a day labs reviewed with patient completed 08/04/23 patient will see PCP 11/02/23 and discuss labs also AIMS =0 11/17/21 AIMS =0 12/31/22 AIMS= 0 07/23/23 missing teeth couple top left educated on all medications, benefits, side effects and risk, and educated on depression, anxiety, and ADHD, mood d/o and educated on compliance of medications, metabolic and movement d/o education appointment's, continue therapy discussion with patient about course of treatmentand patient instructions. Lamotrigine lamotrigine has a serious rashes requiring hospitalization and discontinue treatment including Rigoberto Nicho syndrome rare case of toxic epidermal necrolysis and cache related deaths. Incidence with adjunct of epilepsy treatment 0.8% in 2 to 16 years old and 0.3% in adults, bipolar and other mood disorders incidence 0.8% this initial monotherapy and 0.13% as adjunctive treatment. Other risk factor may include concomitant use of valproate acid derivative or exceeding initial lamotrigine does or does as clinician recommendation; most life-threatening rash of occurring first 2 to 8 week of treatment with isolated cases after prolonged treatment; though benign may occur, discontinue treatment at first sign of rash unless clearly not a drug related; TC treatment may not prevent trash from becoming life-threatening or permanently disabling or disfiguring. Comment reaction include, nausea/vomiting, dizziness/vertigo, visual disturbances, somnolence, ataxia, pruritus/rash, pharyngitis, headache, rhinitis, diarrhea, fever, asthenia, insomnia, tremor, abdominal pain, cough, accidental injury, constipation, dysmenorrhea, incoordination, anxiety, seizures, irritability, anorexia, xerostomia, and photosensitivity. Serious reactions include: Rash, severe; Moses Nicho syndrome; toxic epidermal necrosis; injury edema, hypersensitivity reactions. Including fatal, multiple organ failure to safe fatal, rash with eosinophilia systemic symptoms, DIC, neutropenia, leukopenia, thrombocytopenia, pancytopenia, aplastic anemia, hemolytic anemia, i pancreatitis, hepatic failure, rhabdomyolysis, worsening of suicidal ideation, worsening of depression, cleft lip/palate [first trimester use] DO not Change Cosmetic, perfumes or soap for next 4 weeks. The patient was advice to take lamotrigine as prescribed the patient was instructed not to deviate from the prescription dosages. Stop lamotrigine is the first sign of rash. Patient was insisted to inform office if any of the serious side effect develops. discuss importance of having preventive care mammograms, PAP, colonoscopy and vaccines and routine care - reported mammogram ordered by PCP 2. Generalized anxiety disorder -Buspar 30 mg twice a day Sertraline 100 mg daily SSRI/SNRI side effects discussed including but not limited to, gastric upset, nausea, vomiting, diarrhea and/or constipation, weight changes, sexual side effects including loss of libido, increased suicidal thoughts/behaviors in children and young adults, and serotonin syndrome.Second generation antipsychotics (SGAs) have metabolic syndrome issues with weight gain, increase in prolactin, increased waist circumference, increased lipids, and increased glucose. Thus routine monitoring of weight, metabolic labs, etc. is indicated. A general rank ordering of antipsychotics that have the greatest to the least risk of metabolic effects is olanzapine, quetiapine, risperidone, ziprasidone, and aripiprazole. However, weight gain can occur with all of these drugs and considerable variability exists among patients receiving the same drug regarding the risk of metabolic effects. Anti-psychotic agents not only increase the risk of metabolic disorder, they also increase the risk of CVA, akathisia, and movement disorders including EPS or tardive dyskinesia (more common with first generation antipsychotics) and more. 3. Primary insomnia -Trazodone 25-50 mg at bedtime as needed for sleep - not taken often Medication Management and Follow-Up- Plan:- Schedule follow-up appointments every 2-3 months to monitor the patient's response to the medication regimen.- Reinforce the importance of avoiding recreational drug use due to potential neurotoxicity and interactions with prescribed medications. 4. Chronic post-traumatic stress disorder -in therapy stable 5. Long-term drug therapy 01/16/2025 Generalized anxiety disorder (ICD-10 - F41.1) Learning About Generalized Anxiety Disorder material was published, Learning About Anxiety Disorders material was published 1. major depression - depression Sertraline 100 mg daily decrease Abilify 5 mg at bedtime Cymbalta 60 mg in am Lamotrigine 200 mg twice a day- discuss on higher dose discuss and educated on all rx seeing PCP 01/18/25 for medical concerns AIMS =0 11/17/21 AIMS =0 12/31/22 AIMS= 0 07/23/23 missing teeth couple top left AIMS= 0 08/17/24 educated on all medications, benefits, side effects and risk, and educated on depression, anxiety, and ADHD, mood d/o and educated on compliance of medications, metabolic and movement d/o education appointment's, continue therapy discussion with patient about course of treatmentand patient instructions. Lamotrigine lamotrigine has a serious rashes requiring hospitalization and discontinue treatment including Rigoberto Nicho syndrome rare case of toxic epidermal necrolysis and cache related deaths. Incidence with adjunct of epilepsy treatment 0.8% in 2 to 16 years old and 0.3% in adults, bipolar and other mood disorders incidence 0.8% this initial monotherapy and 0.13% as adjunctive treatment. Other risk factor may include concomitant use of valproate acid derivative or exceeding initial lamotrigine does or does as clinician recommendation; most life-threatening rash of occurring first 2 to 8 week of treatment with isolated cases after prolonged treatment; though benign may occur, discontinue treatment at first sign of rash unless clearly not a drug related; TC treatment may not prevent trash from becoming life-threatening or permanently disabling or disfiguring. Comment reaction include, nausea/vomiting, dizziness/vertigo, visual disturbances, somnolence, ataxia, pruritus/rash, pharyngitis, headache, rhinitis, diarrhea, fever, asthenia, insomnia, tremor, abdominal pain, cough, accidental injury, constipation, dysmenorrhea, incoordination, anxiety, seizures, irritability, anorexia, xerostomia, and photosensitivity. Serious reactions include: Rash, severe; Moses Nicho syndrome; toxic epidermal necrosis; injury edema, hypersensitivity reactions. Including fatal, multiple organ failure to safe fatal, rash with eosinophilia systemic symptoms, DIC, neutropenia, leukopenia, thrombocytopenia, pancytopenia, aplastic anemia, hemolytic anemia, i pancreatitis, hepatic failure, rhabdomyolysis, worsening of suicidal ideation, worsening of depression, cleft lip/palate [first trimester use] DO not Change Cosmetic, perfumes or soap for next 4 weeks. The patient was advice to take lamotrigine as prescribed the patient was instructed not to deviate from the prescription dosages. Stop lamotrigine is the first sign of rash. Patient was insisted to inform office if any of the serious side effect develops. discuss importance of having preventive care mammograms, PAP, colonoscopy and vaccines and routine care - reported mammogram ordered by PCP 2. Generalized anxiety disorder - Discuss on higher dose Buspar Buspar 30 mg twice a day Sertraline 100 mg daily SSRI/SNRI side effects discussed including but not limited to, gastric upset, nausea, vomiting, diarrhea and/or constipation, weight changes, sexual side effects including loss of libido, increased suicidal thoughts/behaviors in children and young adults, and serotonin syndrome.Second generation antipsychotics (SGAs) have metabolic syndrome issues with weight gain, increase in prolactin, increased waist circumference, increased lipids, and increased glucose. Thus routine monitoring of weight, metabolic labs, etc. is indicated. A general rank ordering of antipsychotics that have the greatest to the least risk of metabolic effects is olanzapine, quetiapine, risperidone, ziprasidone, and aripiprazole. However, weight gain can occur with all of these drugs and considerable variability exists among patients receiving the same drug regarding the risk of metabolic effects. Anti-psychotic agents not only increase the risk of metabolic disorder, they also increase the risk of CVA, akathisia, and movement disorders including EPS or tardive dyskinesia (more common with first generation antipsychotics) and more. 3. Primary insomnia -Trazodone 25-50 mg at bedtime as needed for sleep - not taken - will D/C Medication Management and Follow-Up- Plan:- Schedule follow-up appointments every 2-3 months to monitor the patient's response to the medication regimen.- Reinforce the importance of avoiding recreational drug use due to potential neurotoxicity and interactions with prescribed medications. 4. Chronic post-traumatic stress disorder -in therapy stable 5. Long-term drug therapy 08/17/2024 Post-traumatic stress disorder, chronic (ICD-10 - F43.12) 1. major depression - having increase in depression Sertraline 100 mg daily increase Abilify 7.5 mg at bedtime Cymbalta 60 mg in am Lamotrigine 200 mg twice a day labs PCP AIMS =0 11/17/21 AIMS =0 12/31/22 AIMS= 0 07/23/23 missing teeth couple top left AIMS= 0 08/17/24 educated on all medications, benefits, side effects and risk, and educated on depression, anxiety, and ADHD, mood d/o and educated on compliance of medications, metabolic and movement d/o education appointment's, continue therapy discussion with patient about course of treatmentand patient instructions. Lamotrigine lamotrigine has a serious rashes requiring hospitalization and discontinue treatment including Rigoberto Nicho syndrome rare case of toxic epidermal necrolysis and cache related deaths. Incidence with adjunct of epilepsy treatment 0.8% in 2 to 16 years old and 0.3% in adults, bipolar and other mood disorders incidence 0.8% this initial monotherapy and 0.13% as adjunctive treatment. Other risk factor may include concomitant use of valproate acid derivative or exceeding initial lamotrigine does or does as clinician recommendation; most life-threatening rash of occurring first 2 to 8 week of treatment with isolated cases after prolonged treatment; though benign may occur, discontinue treatment at first sign of rash unless clearly not a drug related; TC treatment may not prevent trash from becoming life-threatening or permanently disabling or disfiguring. Comment reaction include, nausea/vomiting, dizziness/vertigo, visual disturbances, somnolence, ataxia, pruritus/rash, pharyngitis, headache, rhinitis, diarrhea, fever, asthenia, insomnia, tremor, abdominal pain, cough, accidental injury, constipation, dysmenorrhea, incoordination, anxiety, seizures, irritability, anorexia, xerostomia, and photosensitivity. Serious reactions include: Rash, severe; Moses Nicho syndrome; toxic epidermal necrosis; injury edema, hypersensitivity reactions. Including fatal, multiple organ failure to safe fatal, rash with eosinophilia systemic symptoms, DIC, neutropenia, leukopenia, thrombocytopenia, pancytopenia, aplastic anemia, hemolytic anemia, i pancreatitis, hepatic failure, rhabdomyolysis, worsening of suicidal ideation, worsening of depression, cleft lip/palate [first trimester use] DO not Change Cosmetic, perfumes or soap for next 4 weeks. The patient was advice to take lamotrigine as prescribed the patient was instructed not to deviate from the prescription dosages. Stop lamotrigine is the first sign of rash. Patient was insisted to inform office if any of the serious side effect develops. discuss importance of having preventive care mammograms, PAP, colonoscopy and vaccines and routine care - reported mammogram ordered by PCP 2. Generalized anxiety disorder -Buspar 30 mg twice a day Sertraline 100 mg daily SSRI/SNRI side effects discussed including but not limited to, gastric upset, nausea, vomiting, diarrhea and/or constipation, weight changes, sexual side effects including loss of libido, increased suicidal thoughts/behaviors in children and young adults, and serotonin syndrome.Second generation antipsychotics (SGAs) have metabolic syndrome issues with weight gain, increase in prolactin, increased waist circumference, increased lipids, and increased glucose. Thus routine monitoring of weight, metabolic labs, etc. is indicated. A general rank ordering of antipsychotics that have the greatest to the least risk of metabolic effects is olanzapine, quetiapine, risperidone, ziprasidone, and aripiprazole. However, weight gain can occur with all of these drugs and considerable variability exists among patients receiving the same drug regarding the risk of metabolic effects. Anti-psychotic agents not only increase the risk of metabolic disorder, they also increase the risk of CVA, akathisia, and movement disorders including EPS or tardive dyskinesia (more common with first generation antipsychotics) and more. 3. Primary insomnia -Trazodone 25-50 mg at bedtime as needed for sleep - not taken often Medication Management and Follow-Up- Plan:- Schedule follow-up appointments every 2-3 months to monitor the patient's response to the medication regimen.- Reinforce the importance of avoiding recreational drug use due to potential neurotoxicity and interactions with prescribed medications. 4. Chronic post-traumatic stress disorder -in therapy stable 5. Long-term drug therapy 01/16/2025 Primary insomnia (ICD-10 - F51.01) Insomnia: Care Instructions material was published, [facility] material was published 1. major depression - depression Sertraline 100 mg daily decrease Abilify 5 mg at bedtime Cymbalta 60 mg in am Lamotrigine 200 mg twice a day- discuss on higher dose discuss and educated on all rx seeing PCP 01/18/25 for medical concerns AIMS =0 11/17/21 AIMS =0 12/31/22 AIMS= 0 07/23/23 missing teeth couple top left AIMS= 0 08/17/24 educated on all medications, benefits, side effects and risk, and educated on depression, anxiety, and ADHD, mood d/o and educated on compliance of medications, metabolic and movement d/o education appointment's, continue therapy discussion with patient about course of treatmentand patient instructions. Lamotrigine lamotrigine has a serious rashes requiring hospitalization and discontinue treatment including Rigoberto Nicho syndrome rare case of toxic epidermal necrolysis and cache related deaths. Incidence with adjunct of epilepsy treatment 0.8% in 2 to 16 years old and 0.3% in adults, bipolar and other mood disorders incidence 0.8% this initial monotherapy and 0.13% as adjunctive treatment. Other risk factor may include concomitant use of valproate acid derivative or exceeding initial lamotrigine does or does as clinician recommendation; most life-threatening rash of occurring first 2 to 8 week of treatment with isolated cases after prolonged treatment; though benign may occur, discontinue treatment at first sign of rash unless clearly not a drug related; TC treatment may not prevent trash from becoming life-threatening or permanently disabling or disfiguring. Comment reaction include, nausea/vomiting, dizziness/vertigo, visual disturbances, somnolence, ataxia, pruritus/rash, pharyngitis, headache, rhinitis, diarrhea, fever, asthenia, insomnia, tremor, abdominal pain, cough, accidental injury, constipation, dysmenorrhea, incoordination, anxiety, seizures, irritability, anorexia, xerostomia, and photosensitivity. Serious reactions include: Rash, severe; Moses Nicho syndrome; toxic epidermal necrosis; injury edema, hypersensitivity reactions. Including fatal, multiple organ failure to safe fatal, rash with eosinophilia systemic symptoms, DIC, neutropenia, leukopenia, thrombocytopenia, pancytopenia, aplastic anemia, hemolytic anemia, i pancreatitis, hepatic failure, rhabdomyolysis, worsening of suicidal ideation, worsening of depression, cleft lip/palate [first trimester use] DO not Change Cosmetic, perfumes or soap for next 4 weeks. The patient was advice to take lamotrigine as prescribed the patient was instructed not to deviate from the prescription dosages. Stop lamotrigine is the first sign of rash. Patient was insisted to inform office if any of the serious side effect develops. discuss importance of having preventive care mammograms, PAP, colonoscopy and vaccines and routine care - reported mammogram ordered by PCP 2. Generalized anxiety disorder - Discuss on higher dose Buspar Buspar 30 mg twice a day Sertraline 100 mg daily SSRI/SNRI side effects discussed including but not limited to, gastric upset, nausea, vomiting, diarrhea and/or constipation, weight changes, sexual side effects including loss of libido, increased suicidal thoughts/behaviors in children and young adults, and serotonin syndrome.Second generation antipsychotics (SGAs) have metabolic syndrome issues with weight gain, increase in prolactin, increased waist circumference, increased lipids, and increased glucose. Thus routine monitoring of weight, metabolic labs, etc. is indicated. A general rank ordering of antipsychotics that have the greatest to the least risk of metabolic effects is olanzapine, quetiapine, risperidone, ziprasidone, and aripiprazole. However, weight gain can occur with all of these drugs and considerable variability exists among patients receiving the same drug regarding the risk of metabolic effects. Anti-psychotic agents not only increase the risk of metabolic disorder, they also increase the risk of CVA, akathisia, and movement disorders including EPS or tardive dyskinesia (more common with first generation antipsychotics) and more. 3. Primary insomnia -Trazodone 25-50 mg at bedtime as needed for sleep - not taken - will D/C Medication Management and Follow-Up- Plan:- Schedule follow-up appointments every 2-3 months to monitor the patient's response to the medication regimen.- Reinforce the importance of avoiding recreational drug use due to potential neurotoxicity and interactions with prescribed medications. 4. Chronic post-traumatic stress disorder -in therapy stable 5. Long-term drug therapy 10/17/2024 Primary insomnia (ICD-10 - F51.01) 1. major depression - improved depression Sertraline 100 mg daily Abilify 7.5 mg at bedtime Cymbalta 60 mg in am Lamotrigine 200 mg twice a day labs PCP AIMS =0 11/17/21 AIMS =0 12/31/22 AIMS= 0 07/23/23 missing teeth couple top left AIMS= 0 08/17/24 educated on all medications, benefits, side effects and risk, and educated on depression, anxiety, and ADHD, mood d/o and educated on compliance of medications, metabolic and movement d/o education appointment's, continue therapy discussion with patient about course of treatmentand patient instructions. Lamotrigine lamotrigine has a serious rashes requiring hospitalization and discontinue treatment including Rigoberto Nicho syndrome rare case of toxic epidermal necrolysis and cache related deaths. Incidence with adjunct of epilepsy treatment 0.8% in 2 to 16 years old and 0.3% in adults, bipolar and other mood disorders incidence 0.8% this initial monotherapy and 0.13% as adjunctive treatment. Other risk factor may include concomitant use of valproate acid derivative or exceeding initial lamotrigine does or does as clinician recommendation; most life-threatening rash of occurring first 2 to 8 week of treatment with isolated cases after prolonged treatment; though benign may occur, discontinue treatment at first sign of rash unless clearly not a drug related; TC treatment may not prevent trash from becoming life-threatening or permanently disabling or disfiguring. Comment reaction include, nausea/vomiting, dizziness/vertigo, visual disturbances, somnolence, ataxia, pruritus/rash, pharyngitis, headache, rhinitis, diarrhea, fever, asthenia, insomnia, tremor, abdominal pain, cough, accidental injury, constipation, dysmenorrhea, incoordination, anxiety, seizures, irritability, anorexia, xerostomia, and photosensitivity. Serious reactions include: Rash, severe; Moses Nicho syndrome; toxic epidermal necrosis; injury edema, hypersensitivity reactions. Including fatal, multiple organ failure to safe fatal, rash with eosinophilia systemic symptoms, DIC, neutropenia, leukopenia, thrombocytopenia, pancytopenia, aplastic anemia, hemolytic anemia, i pancreatitis, hepatic failure, rhabdomyolysis, worsening of suicidal ideation, worsening of depression, cleft lip/palate [first trimester use] DO not Change Cosmetic, perfumes or soap for next 4 weeks. The patient was advice to take lamotrigine as prescribed the patient was instructed not to deviate from the prescription dosages. Stop lamotrigine is the first sign of rash. Patient was insisted to inform office if any of the serious side effect develops. discuss importance of having preventive care mammograms, PAP, colonoscopy and vaccines and routine care - reported mammogram ordered by PCP 2. Generalized anxiety disorder -Buspar 30 mg twice a day Sertraline 100 mg daily SSRI/SNRI side effects discussed including but not limited to, gastric upset, nausea, vomiting, diarrhea and/or constipation, weight changes, sexual side effects including loss of libido, increased suicidal thoughts/behaviors in children and young adults, and serotonin syndrome.Second generation antipsychotics (SGAs) have metabolic syndrome issues with weight gain, increase in prolactin, increased waist circumference, increased lipids, and increased glucose. Thus routine monitoring of weight, metabolic labs, etc. is indicated. A general rank ordering of antipsychotics that have the greatest to the least risk of metabolic effects is olanzapine, quetiapine, risperidone, ziprasidone, and aripiprazole. However, weight gain can occur with all of these drugs and considerable variability exists among patients receiving the same drug regarding the risk of metabolic effects. Anti-psychotic agents not only increase the risk of metabolic disorder, they also increase the risk of CVA, akathisia, and movement disorders including EPS or tardive dyskinesia (more common with first generation antipsychotics) and more. 3. Primary insomnia -Trazodone 25-50 mg at bedtime as needed for sleep - not taken often Medication Management and Follow-Up- Plan:- Schedule follow-up appointments every 2-3 months to monitor the patient's response to the medication regimen.- Reinforce the importance of avoiding recreational drug use due to potential neurotoxicity and interactions with prescribed medications. 4. Chronic post-traumatic stress disorder -in therapy stable 5. Long-term drug therapy 01/16/2025 Post-traumatic stress disorder, chronic (ICD-10 - F43.12) Post-Traumatic Stress Disorder (PTSD): Care Instructions material was published 1. major depression - depression Sertraline 100 mg daily decrease Abilify 5 mg at bedtime Cymbalta 60 mg in am Lamotrigine 200 mg twice a day- discuss on higher dose discuss and educated on all rx seeing PCP 01/18/25 for medical concerns AIMS =0 11/17/21 AIMS =0 12/31/22 AIMS= 0 07/23/23 missing teeth couple top left AIMS= 0 08/17/24 educated on all medications, benefits, side effects and risk, and educated on depression, anxiety, and ADHD, mood d/o and educated on compliance of medications, metabolic and movement d/o education appointment's, continue therapy discussion with patient about course of treatmentand patient instructions. Lamotrigine lamotrigine has a serious rashes requiring hospitalization and discontinue treatment including Rigoberto Nicho syndrome rare case of toxic epidermal necrolysis and cache related deaths. Incidence with adjunct of epilepsy treatment 0.8% in 2 to 16 years old and 0.3% in adults, bipolar and other mood disorders incidence 0.8% this initial monotherapy and 0.13% as adjunctive treatment. Other risk factor may include concomitant use of valproate acid derivative or exceeding initial lamotrigine does or does as clinician recommendation; most life-threatening rash of occurring first 2 to 8 week of treatment with isolated cases after prolonged treatment; though benign may occur, discontinue treatment at first sign of rash unless clearly not a drug related; TC treatment may not prevent trash from becoming life-threatening or permanently disabling or disfiguring. Comment reaction include, nausea/vomiting, dizziness/vertigo, visual disturbances, somnolence, ataxia, pruritus/rash, pharyngitis, headache, rhinitis, diarrhea, fever, asthenia, insomnia, tremor, abdominal pain, cough, accidental injury, constipation, dysmenorrhea, incoordination, anxiety, seizures, irritability, anorexia, xerostomia, and photosensitivity. Serious reactions include: Rash, severe; Moses Nicho syndrome; toxic epidermal necrosis; injury edema, hypersensitivity reactions. Including fatal, multiple organ failure to safe fatal, rash with eosinophilia systemic symptoms, DIC, neutropenia, leukopenia, thrombocytopenia, pancytopenia, aplastic anemia, hemolytic anemia, i pancreatitis, hepatic failure, rhabdomyolysis, worsening of suicidal ideation, worsening of depression, cleft lip/palate [first trimester use] DO not Change Cosmetic, perfumes or soap for next 4 weeks. The patient was advice to take lamotrigine as prescribed the patient was instructed not to deviate from the prescription dosages. Stop lamotrigine is the first sign of rash. Patient was insisted to inform office if any of the serious side effect develops. discuss importance of having preventive care mammograms, PAP, colonoscopy and vaccines and routine care - reported mammogram ordered by PCP 2. Generalized anxiety disorder - Discuss on higher dose Buspar Buspar 30 mg twice a day Sertraline 100 mg daily SSRI/SNRI side effects discussed including but not limited to, gastric upset, nausea, vomiting, diarrhea and/or constipation, weight changes, sexual side effects including loss of libido, increased suicidal thoughts/behaviors in children and young adults, and serotonin syndrome.Second generation antipsychotics (SGAs) have metabolic syndrome issues with weight gain, increase in prolactin, increased waist circumference, increased lipids, and increased glucose. Thus routine monitoring of weight, metabolic labs, etc. is indicated. A general rank ordering of antipsychotics that have the greatest to the least risk of metabolic effects is olanzapine, quetiapine, risperidone, ziprasidone, and aripiprazole. However, weight gain can occur with all of these drugs and considerable variability exists among patients receiving the same drug regarding the risk of metabolic effects. Anti-psychotic agents not only increase the risk of metabolic disorder, they also increase the risk of CVA, akathisia, and movement disorders including EPS or tardive dyskinesia (more common with first generation antipsychotics) and more. 3. Primary insomnia -Trazodone 25-50 mg at bedtime as needed for sleep - not taken - will D/C Medication Management and Follow-Up- Plan:- Schedule follow-up appointments every 2-3 months to monitor the patient's response to the medication regimen.- Reinforce the importance of avoiding recreational drug use due to potential neurotoxicity and interactions with prescribed medications. 4. Chronic post-traumatic stress disorder -in therapy stable 5. Long-term drug therapy 10/17/2024 Post-traumatic stress disorder, chronic (ICD-10 - F43.12) 1. major depression - improved depression Sertraline 100 mg daily Abilify 7.5 mg at bedtime Cymbalta 60 mg in am Lamotrigine 200 mg twice a day labs PCP AIMS =0 11/17/21 AIMS =0 12/31/22 AIMS= 0 07/23/23 missing teeth couple top left AIMS= 0 08/17/24 educated on all medications, benefits, side effects and risk, and educated on depression, anxiety, and ADHD, mood d/o and educated on compliance of medications, metabolic and movement d/o education appointment's, continue therapy discussion with patient about course of treatmentand patient instructions. Lamotrigine lamotrigine has a serious rashes requiring hospitalization and discontinue treatment including Rigoberto Nicho syndrome rare case of toxic epidermal necrolysis and cache related deaths. Incidence with adjunct of epilepsy treatment 0.8% in 2 to 16 years old and 0.3% in adults, bipolar and other mood disorders incidence 0.8% this initial monotherapy and 0.13% as adjunctive treatment. Other risk factor may include concomitant use of valproate acid derivative or exceeding initial lamotrigine does or does as clinician recommendation; most life-threatening rash of occurring first 2 to 8 week of treatment with isolated cases after prolonged treatment; though benign may occur, discontinue treatment at first sign of rash unless clearly not a drug related; TC treatment may not prevent trash from becoming life-threatening or permanently disabling or disfiguring. Comment reaction include, nausea/vomiting, dizziness/vertigo, visual disturbances, somnolence, ataxia, pruritus/rash, pharyngitis, headache, rhinitis, diarrhea, fever, asthenia, insomnia, tremor, abdominal pain, cough, accidental injury, constipation, dysmenorrhea, incoordination, anxiety, seizures, irritability, anorexia, xerostomia, and photosensitivity. Serious reactions include: Rash, severe; Moses Nicho syndrome; toxic epidermal necrosis; injury edema, hypersensitivity reactions. Including fatal, multiple organ failure to safe fatal, rash with eosinophilia systemic symptoms, DIC, neutropenia, leukopenia, thrombocytopenia, pancytopenia, aplastic anemia, hemolytic anemia, i pancreatitis, hepatic failure, rhabdomyolysis, worsening of suicidal ideation, worsening of depression, cleft lip/palate [first trimester use] DO not Change Cosmetic, perfumes or soap for next 4 weeks. The patient was advice to take lamotrigine as prescribed the patient was instructed not to deviate from the prescription dosages. Stop lamotrigine is the first sign of rash. Patient was insisted to inform office if any of the serious side effect develops. discuss importance of having preventive care mammograms, PAP, colonoscopy and vaccines and routine care - reported mammogram ordered by PCP 2. Generalized anxiety disorder -Buspar 30 mg twice a day Sertraline 100 mg daily SSRI/SNRI side effects discussed including but not limited to, gastric upset, nausea, vomiting, diarrhea and/or constipation, weight changes, sexual side effects including loss of libido, increased suicidal thoughts/behaviors in children and young adults, and serotonin syndrome.Second generation antipsychotics (SGAs) have metabolic syndrome issues with weight gain, increase in prolactin, increased waist circumference, increased lipids, and increased glucose. Thus routine monitoring of weight, metabolic labs, etc. is indicated. A general rank ordering of antipsychotics that have the greatest to the least risk of metabolic effects is olanzapine, quetiapine, risperidone, ziprasidone, and aripiprazole. However, weight gain can occur with all of these drugs and considerable variability exists among patients receiving the same drug regarding the risk of metabolic effects. Anti-psychotic agents not only increase the risk of metabolic disorder, they also increase the risk of CVA, akathisia, and movement disorders including EPS or tardive dyskinesia (more common with first generation antipsychotics) and more. 3. Primary insomnia -Trazodone 25-50 mg at bedtime as needed for sleep - not taken often Medication Management and Follow-Up- Plan:- Schedule follow-up appointments every 2-3 months to monitor the patient's response to the medication regimen.- Reinforce the importance of avoiding recreational drug use due to potential neurotoxicity and interactions with prescribed medications. 4. Chronic post-traumatic stress disorder -in therapy stable 5. Long-term drug therapy 01/16/2025 Other Gait, Strength, and Balance Training ExercisesThis handout provides simple exercises to improve your gait, strength, and balance. Theseexercises can help prevent falls, improve mobility, and enhance overall function. Perform them in asafe space, use support if needed, and stop if you feel pain or dizziness.1. Gait Training Exercises- Walk in a straight line for 10-20 feet, heel-to-toe.- Step over small objects (cones or rolled towels).- Practice walking sideways and backwards.- Use a treadmill if available, under supervision.2. Balance Exercises- Stand on one foot for 10-30 seconds; switch legs.- Walk heel-to-toe in a straight line.- Use a balance board or cushion to challenge stability.- Practice rising from a chair without using your hands.3. Strength Training Exercises- [id number]: rise from a chair repeatedly.- Wall push-ups: stand at arm's length from a wall and push.- Step-ups on a low step or stairs.- Leg lifts while seated or lying down.Consult your primary care provider (PCP) before starting these exercises, especially if you havemedical conditions or difficulty performing them, Duloxetine material was published, Lamotrigine material was published, Sertraline material was published 1. major depression - depression Sertraline 100 mg daily decrease Abilify 5 mg at bedtime Cymbalta 60 mg in am Lamotrigine 200 mg twice a day- discuss on higher dose discuss and educated on all rx seeing PCP 01/18/25 for medical concerns AIMS =0 11/17/21 AIMS =0 12/31/22 AIMS= 0 07/23/23 missing teeth couple top left AIMS= 0 08/17/24 educated on all medications, benefits, side effects and risk, and educated on depression, anxiety, and ADHD, mood d/o and educated on compliance of medications, metabolic and movement d/o education appointment's, continue therapy discussion with patient about course of treatmentand patient instructions. Lamotrigine lamotrigine has a serious rashes requiring hospitalization and discontinue treatment including Rigoberto Nicho syndrome rare case of toxic epidermal necrolysis and cache related deaths. Incidence with adjunct of epilepsy treatment 0.8% in 2 to 16 years old and 0.3% in adults, bipolar and other mood disorders incidence 0.8% this initial monotherapy and 0.13% as adjunctive treatment. Other risk factor may include concomitant use of valproate acid derivative or exceeding initial lamotrigine does or does as clinician recommendation; most life-threatening rash of occurring first 2 to 8 week of treatment with isolated cases after prolonged treatment; though benign may occur, discontinue treatment at first sign of rash unless clearly not a drug related; TC treatment may not prevent trash from becoming life-threatening or permanently disabling or disfiguring. Comment reaction include, nausea/vomiting, dizziness/vertigo, visual disturbances, somnolence, ataxia, pruritus/rash, pharyngitis, headache, rhinitis, diarrhea, fever, asthenia, insomnia, tremor, abdominal pain, cough, accidental injury, constipation, dysmenorrhea, incoordination, anxiety, seizures, irritability, anorexia, xerostomia, and photosensitivity. Serious reactions include: Rash, severe; Moses Nicho syndrome; toxic epidermal necrosis; injury edema, hypersensitivity reactions. Including fatal, multiple organ failure to safe fatal, rash with eosinophilia systemic symptoms, DIC, neutropenia, leukopenia, thrombocytopenia, pancytopenia, aplastic anemia, hemolytic anemia, i pancreatitis, hepatic failure, rhabdomyolysis, worsening of suicidal ideation, worsening of depression, cleft lip/palate [first trimester use] DO not Change Cosmetic, perfumes or soap for next 4 weeks. The patient was advice to take lamotrigine as prescribed the patient was instructed not to deviate from the prescription dosages. Stop lamotrigine is the first sign of rash. Patient was insisted to inform office if any of the serious side effect develops. discuss importance of having preventive care mammograms, PAP, colonoscopy and vaccines and routine care - reported mammogram ordered by PCP 2. Generalized anxiety disorder - Discuss on higher dose Buspar Buspar 30 mg twice a day Sertraline 100 mg daily SSRI/SNRI side effects discussed including but not limited to, gastric upset, nausea, vomiting, diarrhea and/or constipation, weight changes, sexual side effects including loss of libido, increased suicidal thoughts/behaviors in children and young adults, and serotonin syndrome.Second generation antipsychotics (SGAs) have metabolic syndrome issues with weight gain, increase in prolactin, increased waist circumference, increased lipids, and increased glucose. Thus routine monitoring of weight, metabolic labs, etc. is indicated. A general rank ordering of antipsychotics that have the greatest to the least risk of metabolic effects is olanzapine, quetiapine, risperidone, ziprasidone, and aripiprazole. However, weight gain can occur with all of these drugs and considerable variability exists among patients receiving the same drug regarding the risk of metabolic effects. Anti-psychotic agents not only increase the risk of metabolic disorder, they also increase the risk of CVA, akathisia, and movement disorders including EPS or tardive dyskinesia (more common with first generation antipsychotics) and more. 3. Primary insomnia -Trazodone 25-50 mg at bedtime as needed for sleep - not taken - will D/C Medication Management and Follow-Up- Plan:- Schedule follow-up appointments every 2-3 months to monitor the patient's response to the medication regimen.- Reinforce the importance of avoiding recreational drug use due to potential neurotoxicity and interactions with prescribed medications. 4. Chronic post-traumatic stress disorder -in therapy stable 5. Long-term drug therapy Plan Of Treatment Next Appt Details Provider Name:Batsheva Curry , 04/16/2025 11:30:00 AM, [id number] [facility] [address], [facility] [address], [place], [address], Insurance Providers Payer Name Payer Address Payer Phone Subscriber Number Group Number Insured Name Patient Relationship to Insured Coverage Start Date Coverage End Date [employer] [facility] Ppo [address] [address] [place] [phone] [id number] ALFREDO KELLY Spouse - patient is the spouse of the insured [employer] Medicare Replacement/ Advantage - Hmo [address] [address] [place] [address] [id number] GUMARO STANLEY Self - patient is the insured Medical (General) History Medical History History ICD Code Problems: Chronic post-traumatic stress disorder Generalized anxiety disorder Long-term drug therapy Mild recurrent major depression Moderate recurrent major depression Moderately severe recurrent major depres renetta Primary insomnia , Surgical History Surgery Date(Month/Year) Any surgical history Total knee replacement ([id number]) left 09/23/2022 Tonsilectomy/adenoids 11/27/1975 Hysterectomy ([id number]) 03/12/2010
--- OUTSIDE RECORDS SUMMARY | 2025-02-19 12:17 | XMS_ITS | Clinical Summary ---
Author Organization [facility] Address [address] [place] [id number] Care Team Providers Care Data Systems Analyst Name Role Phone Delphine Kingsley Primary Care Provider + Allergies No known active allergies Medications lisinopriL (PRINIVIL,ZESTR IL) 10 mg tablet Take 1 tablet (10 mg total) by mouth daily Active atorvastatin (LIPITOR) 20 mg tablet Take 1 tablet (20 mg total) by mouth daily Active ARIPiprazole (ABILIFY) 10 mg tablet Take 1 tablet (10 mg total) by mouth daily Active DULoxetine DR (CYMBALTA) 60 mg capsule Take 1 capsule (60 mg total) by mouth daily Active insulin glargine 100 unit/mL vial for injection Inject 95 Units under the skin 2 (two) times a day Active Active Problems Problem Noted Date Diagnosed Date Occlusion of right carotid artery 01/14/2024 Assessment & Plan (02/03/2024 10:01 AM CDT): 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 Discussed findings with the patient with recommendation for ongoing surveillance of any left ICA disease. Continue risk factor modification with ASA statin therapy good blood pressure control. Follow up in 1 year with repeat carotid duplex. Assessment & Plan (01/14/2024 12:13 PM CDT): Known dissection of the right internal carotid artery, now with possible occlusion. CTA head and neck ordered for further evaluation. Continue ASA statin therapy good blood pressure control. Mixed hyperlipidemia 01/14/2024 Assessment & Plan (02/03/2024 10:01 AM CDT): Stable continue Lipitor 20 mg. Assessment & Plan (01/14/2024 12:13 PM CDT): Stable continue Lipitor 20 mg Type 1 diabetes mellitus 09/30/2010 Hypertension 09/30/2010 Assessment & Plan (02/03/2024 10:01 AM CDT): Stable continue lisinopril 10 mg. Assessment & Plan (01/14/2024 12:13 PM CDT): Stable continue lisinopril 10 mg. 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 Gender Identity Not on file Sexual Orientation Not on file Obstetrics History Last Filed Vital Signs Vital Sign Reading Time Taken Comments Blood Pressure 124/77 02/02/2024 10:16 AM CDT Pulse 87 02/02/2024 10:16 AM CDT Temperature - - Respiratory Rate - - Oxygen Saturation 99% 02/02/2024 10:16 AM CDT Inhaled Oxygen Concentration - - Weight - - Height - - Body Mass Index - - Plan of Treatment Health Maintenance Due Date Last Done Comments Albumin Creatinine Ratio, Urine 1970 Breast Cancer Screening-Mammogram 1970 Cervical Cancer Screening 1970 Colon Cancer Screening-Colonoscopy 1970 Depression Screening 1970 Foot Exam 1970 Hepatitis C Screening 1970 TSH Level 1970 eGFR 1970 Dilated Eye Exam 1980 Lipid Panel 1980 Hepatitis B Screening 1988 Regular Well Visit/Exam 18-64 1988 Pneumococcal vaccine <65 (1 of 2 - PCV) 1989 Hemoglobin A1C 02/27/2018 08/27/2017 Covid-19 Vaccine (4 - 2023-2 5 season) 2024 11/04/2020, 11/04/2020, 10/14/2020, Additional history exists Influenza Vaccine (#1) 2025 , 02/25/2023, 04/01/2022, Additional history exists DTaP/Tdap/Td Vaccine (2 - Td or Tdap) 01/03/2034 01/04/2024 Zoster Vaccine Completed 04/28/2022, 11/27, 04/30/2021 Procedures Procedure Name Priority Date/Time Associated Diagnosis Comments US CAROTIDS DUPLEX BILATERAL Schedule Routine, Read Routine (OP Routine) 02/07/2025 9:47 AM CDT Carotid stenosis, bilateral from Last 3 Months Results * US Carotids Duplex Bilateral (02/07/2025 9:47 AM CDT) Anatomical Region Laterality Modality Vascular Bilateral Ultrasound 02/07/2025 9:12 AM CDT Narrative 02/09/2025 9:28 AM CDT Vascular & Vein Surgery [address] [place] [address] Carotid Duplex Ultrasound Report Patient Name: ANNE STANLEY A : 1970 (54y 8m) Study Date: 02/07/2025 9:12:04 AM Gender: F Bull Chain Operator: MARLENE Location: [facility] Provider: ANTWON HERNADEZ Quality: Adequate Order Provider: ANTWON HERNADEZ PROCEDURES: Carotid Report: Carotid duplex examination of the extracranial arteries was performed using 2D, color and spectral Doppler. INDICATIONS: Known ANGELA dissection. HISTORY: HTN. HLD. DM. COMPARISONS: Prior CTA 01/28/24: Rt high grade stenosis with minimal flow distally, Lt WNL. MEASUREMENTS: Right Value Left Value RT Prox CCA PSV 92 cm/sec LT Prox CCA PSV 122 cm/sec RT Prox CCA EDV 8 cm/sec LT Prox CCA EDV 12 cm/sec RT Distal CCA PSV 56 cm/sec LT Distal CCA PSV 93 cm/sec RT Distal CCA EDV 7 cm/sec LT Distal CCA EDV 10 cm/sec RT Prox ICA PSV 33 cm/sec LT Prox ICA PSV 42 cm/sec RT Prox ICA EDV 7 cm/sec LT Prox ICA EDV 9 cm/sec RT Mid ICA PSV 0 cm/sec LT Mid ICA PSV 58 cm/sec RT Distal ICA PSV 0 cm/sec LT Mid ICA EDV 13 cm/sec RT ECA Prx PSV 95 cm/sec LT Distal ICA PSV 48 cm/sec RT ICA/CCA 0.59 ratio LT Distal ICA EDV 12 cm/sec Rt Vert Dst PSV 51 cm/sec LT ECA Prx PSV 175 cm/sec LT ICA/CCA 0.63 ratio Lt Vert Dst PSV 43 cm/sec FINDINGS: Rt Common Carotid Artery: Duplex imaging of the right common carotid artery is within normal limits without evidence of atherosclerotic disease. Rt Internal Carotid Artery: The plaque in the right internal carotid artery appears to be irregular. No evidence of color filling and absent Doppler signals within the right internal carotid artery. Significant atherosclerotic disease present on 2D imaging. Difficult to define distal segment. Rt External Carotid Artery: The right external carotid artery is patent without evidence of atherosclerotic plaque. Rt Vertebral Artery: The right vertebral artery is patent with antegrade flow. Lt Common Carotid Artery: Duplex imaging of the left common carotid artery is within normal limits without evidence of atherosclerotic disease. Lt Internal Carotid Artery: The plaque in the left internal carotid artery appears to be heterogeneous and smooth. Atherosclerotic changes of the left internal carotid artery without hemodynamically significant Doppler findings. <50% stenosis. Lt External Carotid Artery: The left external carotid artery is patent without evidence of atherosclerotic plaque. Lt Vertebral Artery: The left vertebral artery is patent with antegrade flow. Comments: Brachial artery systolic blood pressure is 146 on the right, 135 on the left. Provider Notification: Results given to Dr. Hernadez at 09:47. CONCLUSIONS: 1. The right internal carotid artery disease is consistent with a severe obstruction or complete occlusion. 2. The left internal carotid artery disease is consistent with a less than 50% stenosis. 3. Normal, antegrade flow is noted in bilateral vertebral arteries. ATTESTATION: I have reviewed and interpreted the pertinent images and measurements of this study. I attest to the conclusions in the final report that is provided above. Electronically Signed By: Antwon Hernadez MD 02/09/2025 8:31:45 AM CDT Procedure Note Antwon Hernadez MD - 02/09/2025 Vascular & Vein Surgery [address] [place] [id number] Carotid Duplex Ultrasound Report Patient Name: ANNE STANLEY A : 1970 (54y 8m) Study Date: 02/07/2025 9:12:04 AM Gender: F Bull Chain Operator: Location: [facility] Ref Provider: ANTWON HERNADEZ Quality: Adequate Order Provider: NATWON HERNADEZ PROCEDURES: Carotid Report: Carotid duplex examination of the extracranial arterieswas performed using 2D, color and spectral Doppler. INDICATIONS: Known ANGELA dissection. HISTORY: HTN. HLD. DM. COMPARISONS: Prior CTA 01/28/24: Rt high grade stenosis with minimal flow distally, LtWNL. MEASUREMENTS: Right Value Left Value RT Prox CCA PSV 92 cm/sec LT Prox CCA PSV 122 cm/sec RT Prox CCA EDV 8 cm/sec LT Prox CCA EDV 12 cm/sec RT Distal CCA PSV 56 cm/sec LT Distal CCA PSV 93 cm/sec RT Distal CCA EDV 7 cm/sec LT Distal CCA EDV 10 cm/sec RT Prox ICA PSV 33 cm/sec LT Prox ICA PSV 42 cm/sec RT Prox ICA EDV 7 cm/sec LT Prox ICA EDV 9 cm/sec RT Mid ICA PSV 0 cm/sec LT Mid ICA PSV 58 cm/sec RT Distal ICA PSV 0 cm/sec LT Mid ICA EDV 13 cm/sec RT ECA Prx PSV 95 cm/sec LT Distal ICA PSV 48 cm/sec RT ICA/CCA 0.59 ratio LT Distal ICA EDV 12 cm/sec Rt Vert Dst PSV 51 cm/sec LT ECA Prx PSV 175 cm/sec LT ICA/CCA 0.63 ratio Lt Vert Dst PSV 43 cm/sec FINDINGS: Rt Common Carotid Artery: Duplex imaging of the right common carotidartery is within normal limits without evidence of atherosclerotic disease. Rt Internal Carotid Artery: The plaque in the right internal carotidartery appears to be irregular. No evidence of color filling and absent Doppler signals withinthe right internal carotid artery. Significant atherosclerotic disease present on 2Dimaging. Difficult to define distal segment. Rt External Carotid Artery: The right external carotid artery is patentwithout evidence of atherosclerotic plaque. Rt Vertebral Artery: The right vertebral artery is patent with antegradeflow. Lt Common Carotid Artery: Duplex imaging of the left common carotid arteryis within normal limits without evidence of atherosclerotic disease. Lt Internal Carotid Artery: The plaque in the left internal carotid arteryappears to be heterogeneous and smooth. Atherosclerotic changes of the left internalcarotid artery without hemodynamically significant Doppler findings. <50% stenosis. Lt External Carotid Artery: The left external carotid artery is patentwithout evidence of atherosclerotic plaque. Lt Vertebral Artery: The left vertebral artery is patent with antegradeflow. Comments: Brachial artery systolic blood pressure is 146 on the right, 135on the left. Provider Notification: Results given to Dr. Hernadez at 09:47. CONCLUSIONS: 1. The right internal carotid artery disease is consistent with a severeobstruction or complete occlusion. 2. The left internal carotid artery disease is consistent with a less than50% stenosis. 3. Normal, antegrade flow is noted in bilateral vertebral arteries. ATTESTATION: I have reviewed and interpreted the pertinent images and measurements ofthis study. I attest to the conclusions in the final report that is provided above. Electronically Signed By: Antwon Hernadez MD 02/09/2025 8:31:45 AM CDT Antwon Hernadez MD [facility] PROC[facility] Final Result from Last 3 Months Insurance [facility] MEDICARE ADVANTAGE [facility] CHOICE PLUS [facility] MEDICARE ADVANTAGE Care Teams Data Systems Analyst Relationship Specialty Start Date End Date Delphine Kingsley PA PCP - General Physician Car Seat Upholsterer 01/04/24
--- OUTSIDE RECORDS SUMMARY | 2025-02-19 12:17 | XMS_ITS | Clinical Summary ---
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 Active ALPRAZolam (XANAX) 0.25 mg tabletIndications:Gener alized anxiety disorder Take 1 Tablet (0.25 mg) by mouth 1 time daily as needed for Anxiety. 15 Tablet 017 Active lamoTRIgine (LaMICtal) 150 mg tablet Take 1 Tablet (150 mg) by mouth 2 times daily. 20 Tablet 017 Active DULoxetine (CYMBALTA) 60 mg Capsule, Delayed Release(E.C.)Indication s:Fibromyalgia Take 1 Capsule (60 mg) by mouth daily 2 caps daily. 90 Capsule 1 018 Active FLUoxetine (PROzac) 10 mg capsuleIndications:Need for influenza vaccination 10 mg. 018 Active Insulin [place], Disposable, (Jesi Pen Needle) 32 gauge x 5/32 NeedleIndications:Type 2 diabetes mellitus with hyperglycemia, with long-term current use of insulin ([facility]) USE TWICE DAILY FOR INSULIN PEN INJECTION. 100 Each 2 018 Active blood sugar diagnostic (FREESTYLE LITE STRIPS) StripIndications:Type 2 diabetes mellitus with hyperglycemia, with long-term current use of insulin ([facility]) CHECK BLOOD SUGAR THREE TIMES DAILY test 3 times daily E11.22. 100 Strip 3 018 Active atorvastatin (LIPITOR) 10 mg tabletIndications:Pure hypercholesterolemia TAKE 1 TABLET BY MOUTH EVERY DAY. 90 Tablet 1 018 Active Insulin [place], Disposable, (Jesi Pen Needle) 32 gauge x 32 Needle USE SIX DAILY FOR INSULIN PEN INJECTION. 400 Each 2 018 Active insulin detemir U-100 (LEVEMIR FLEXTOUCH U-100 INSULN) 100 unit/mL pen syringeIndications:Type 2 diabetes mellitus with hyperglycemia, with long-term current use of insulin ([facility]) INJECT 80 UNITS SUBCUTANEOUSLY EVERY MORNING AND 100 UNITS SUBCUTANEOUSLY EVERY NIGHT AT BEDTIME. 60 mL 019 Active liraglutide (VICTOZA 2-AQUILES) 0.6 mg/0.1 mL (18 mg/3 mL)Indications:Type 2 diabetes mellitus with hyperglycemia, with long-term current use of insulin ([facility]) INJECT 1.2 MG SUBCUTANEOUSLY DAILY DIRECTED. 6 mL 5 019 Active lisinopril (PRINIVIL) 5 mg tabletIndications:Essen tial hypertension, benign TAKE 1 TABLET BY MOUTH ONCE DAILY 90 Tablet 1 019 Active insulin aspart U-100 (NovoLOG Flexpen U-100 Insulin) 100 unit/mL pen syringeIndications:Type 2 diabetes mellitus with hyperglycemia, with long-term current use of insulin ([facility]) INJECT 5 TO 15 UNITS SUBCUTANEOUSLY THREE TIMES DAILY BEFORE MEAL(S) PER SLIDING SCALE 15 mL 020 Active aspirin-dipyridamole SR 12 hour (AGGRENOX) 25-200 mg capsule TAKE 1 CAPSULE BY MOUTH TWICE DAILY 180 Capsule 020 Active Active Problems Problem Noted Date Diagnosed Date Fibromyalgia 05/24/2017 Severe obesity (BMI 35.0-39.9) with comorbidity 03/23/2016 Perennial allergic rhinitis 10/29/2015 Family history of colon cancer 02/13/2014 Social phobia 02/13/2014 Generalized anxiety disorder 02/13/2014 Generalized osteoarthrosis, involving multiple s ites 02/13/2014 Essential hypertension, benign 02/13/2014 Type 2 diabetes mellitus wit h hyperglycemia, with long-term current use of insulin 02/13/2014 Pure hypercholesterolemia 02/13/2014 H/O: stroke Overview (11/26/2014): residual effects include expressive aphasia (much improved, but still occasionally symptomatic); Carotid artery dissection; 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 Resolved Problems Problem Noted Date Diagnosed Date Resolved Date Obesity (BMI 30.0-34.9) 08/05/201502/27 Immunizations Immunization Administration Dates Next Due INFLUENZA VACCINE QUADRIVALE NT 3 YR UP PF IM 04/29/2018,05/24/2017,03/23/2016 Influenza Seasonal Unspecifi ed Formulation IM 05/15/2014 Family History Medical History Relation Name Comments Coronary Artery Disease Father High Cholesterol Father Hypertension Father Schizophrenia Father Heart defect Mother Osteoporosis Mother Other Mother fibromyalgia Colon Cancer Other grandparents Stroke Other grandparents Depression Sister Relation Name Status Comments Father Mother Other grandparents Alive Sister Social History Tobacco Use Types Packs/Day Years Used Date Smoking Tobacco: Former Cigarettes 0.8 10 Alcohol Use Standard Drinks/Week Comments No 0 (1 standard drink = 0.6 oz pur e alcohol) very rare Comments No Sex and Gender Information Value Date Recorded Sex Assigned at Not on file Legal Sex Female 4:24 AM CONTINUITY TESTER Gender Identity Not on file Sexual Orientation Not on file Last Filed Vital Signs Vital Sign Reading Time Taken Comments Blood Pressure 144/78 04/29/2018 1:24 PM CDT Pulse 79 04/29/2018 1:24 PM CDT Temperature 37.2 C (99 F) 04/29/2018 1:24 PM CDT Respiratory Rate 18 10/29/2015 8:54 AM CDT Oxygen Saturation 98% 04/29/2018 1:24 PM CDT Inhaled Oxygen Concentration - - Weight 99.8 kg (220 lb) 04/29/2018 1:24 PM CDT Height 170.2 cm (5' 7) 04/29/2018 1:24 PM CDT Body Mass Index 34.46 04/29/2018 1:24 PM CDT Plan of Treatment Health Maintenance Due Date Last Done Comments DIABETES ANNUAL RETINAL EXAM 1988 DTAP/TDAP/TD VACCINES (1 - Tdap) 1989 HEPATITIS B VACCINES (1 of 3 - 19+ 3-dose series) 1989 COLORECTAL SCREENING 2015 Colorectal Cancer Screening 2015 FIT-DNA Q 3 years 2015 FIT/FOBT Q 1 year 2015 Flex Sig/CT Colonography Q 5 years 2015 BREAST CANCER SCREENING 07/31/2017 07/31/2016, 07/27 DIABETES MICROALBUMIN ANNUAL SCREEN 08/27/2018 08/27/2017 LDL CHOLESTEROL ANNUAL 08/27/2018 08/27/2017 DIABETES HBA1C Q 6 MONTHS 03/30/20192018, 04/29/2018, 11/29/2017, Additional history exists DIABETES ANNUAL FOOT EXAM 04/29/2019 04/29/2018 ZOSTER VACCINE (1 of 2) 2020 INFLUENZA VACCINE (#1) 2025 8, 05/24/2017, 03/23/2016, Additional history exists Procedures Procedure Name Priority Date/Time Associated Diagnosis Comments POC HEMOGLOBIN A1C Routine 04/29/2018 2: 25 PM CDT Type 2 diabetes mellitus with hyperglycemia, with long-term current use of insulin ([facility]) MICROALBUMIN, RANDOM URINE Routine 08/27/2017 LIPID PANEL Routine 08/27/2017 MAMMO DIAGNOSTIC BILATERAL W OR WO CAD Routine 07/31/2016 2:56 PM CONTINUITY TESTER Abnormal mammogram from Last 3 Months or Most Recently Relevant to Health Maintenance Results * (ABNORMAL) POC HEMOGLOBIN A1C (04/29/2018 2:25 PM CDT) HGB A1C POC 8.1(A) 4.0 - 6.0 % JOCELYN ROWLAND Blood, capillary 04/29/2018 2:25 PM CDT us Kitty Prajapati PURIFICATION OPERATOR POINT OF CARE TESTING Final Resu lt [email or web address] CLIA#[id number] [address] [place] [address], * MICROALBUMIN, RANDOM URINE (08/27/2017) Urine URINE SPECIMEN OBTAINED BY CLEAN CATCH PROCEDURE / Unknown us Abstract Provider URINE ORDERABLES Edited Result - Final JOCELYN ROWLAND CLIA#[id number] [address] [id number], [place] * LIPID PANEL (08/27/2017) Blood us Abstract Provider CHEMISTRY ORDERABLES Edited Re sult - Final JOCELYN ROWLAND CLIA#[id number] [address] [id number], [place] * MAMMO DIAGNOSTIC BILATERAL W OR WO CAD (07/31/2016 2:56 PM CONTINUITY TESTER) Anatomical Region Laterality Modality Breast Bilateral Mammography 07/31/2016 2:56 PM CONTINUITY TESTER Impressions 07/31/2016 4:01 PM CONTINUITY TESTER IMPRESSION: 1. The nodular density seen on the right corresponds to a benign intramammary lymph node. 2. No mass is confirmed on the left. The possible densities seen on the screening study are thought to have been glandular tissue/superimposition shadows. OVERALL ASSESSMENT BI-RADS Category 2 - Benign findings. [facility] 4:01 [facility] CONTINUITY TESTER EXAM: FULL-FIELD DIGITAL BILATERAL DIAGNOSTIC MAMMOGRAPHY WITH CAD DATE: 07/31/2016 2:56 PM CLINICAL INFORMATION: Abnormal mammogram. COMPARISON: Baseline screening study of 07/27/2016. BREAST DENSITY: Almost entirely fat. INTERPRETATION: Examination of both breasts was obtained. Mediolateral contact mammograms were obtained. In addition, spot compression views of each breast in craniocaudal, mediolateral oblique and mediolateral projections were also obtained. CAD was utilized. Nodular density in the upper-outer quadrant of the right breast is confirmed on additional imaging. Ultrasound is recommended for further evaluation and that result will follow. Targeted right breast ultrasound shows that the nodular density seen on the mammogram corresponds to a benign intramammary lymph node at the 10:00 position. Additional views of the left breast do not confirm a mass. The possible densities seen on the screening study are thought to have been glandular tissue/superimposition shadows. Procedure Note Viridiana Wong MD - 07/31/2016 EXAM: FULL-FIELD DIGITAL BILATERAL DIAGNOSTIC MAMMOGRAPHY WITH CAD DATE: 07/31/2016 2:56 PM CLINICAL INFORMATION: Abnormal mammogram. COMPARISON: Baseline screening study of 07/27/2016. BREAST DENSITY: Almost entirely fat. INTERPRETATION: Examination of both breasts was obtained. Mediolateral contact mammograms were obtained. In addition, spot compression views of each breast in craniocaudal, mediolateral oblique and mediolateral projections were also obtained. CAD was utilized. Nodular density in the upper-outer quadrant of the right breast is confirmed on additional imaging. Ultrasound is recommended for further evaluation and that result will follow. Targeted right breast ultrasound shows that the nodular density seen on the mammogram corresponds to a benign intramammary lymph node at the 10:00 position. Additional views of the left breast do not confirm a mass. The possible densities seen on the screening study are thought to have been glandular tissue/superimposition shadows. IMPRESSION IMPRESSION: 1. The nodular density seen on the right corresponds to a benign intramammary lymph node. 2. No mass is confirmed on the left. The possible densities seen on the screening study are thought to have been glandular tissue/superimposition shadows. OVERALL ASSESSMENT BI-RADS Category 2 - Benign findings. DICTATION LOCATION: [facility] us José Miguel Velez MD MAMMO ORDERABLES Final Re sult from Last 3 Months or Most Recently Relevant to Health Maintenance Insurance MEDICARE PART A AND B
[2025-02-19 12:31] LABS: Alanine Aminotransferase 20 U/L (6-35); Albumin Level 4.4 g/dL (3.5-5.1); Alkaline Phosphatase 111 U/L (38-126); Anion Gap 9 mmol/L (4-12); Aspartate Amino Transferase 28 U/L (14-36); Bilirubin,Total 0.5 mg/dL (0.2-1.3); Blood Urea Nitrogen 17 mg/dL (7-17); Calcium 9.5 mg/dL (8.4-10.2); Carbon Dioxide 27 mmol/L (22-30); Chloride 103 mmol/L (98-107); Cholesterol 125 mg/dL (0-200); Estimated Glomerular Filt Rate > 60; Glucose 157 mg/dL (65-110); HDL Direct 34 mg/dL; Potassium 4.4 mmol/L (3.4-5.0); Sodium 139 mmol/L (137-145); Total Protein 7.9 g/dL (6.3-8.2); Triglycerides 133 mg/dL (<150)
== END 2025-02-19 11:49 | disposition home or self-care (01) ==
LOC: ANHLAB 11:49
PROVIDERS: PCP Physician Assistant; Visit Provider Internal Medicine Cardiovascular Disease
DX: E78.5 Hyperlipidemia, unspecified (principal)
CPT/HCPCS: 36415; 80053; 80061

== ENCOUNTER 2025-06-07 14:33 | Outpatient (CLI) | payer OTHER, MEDICARE, SELFPAY ==
--- NOTE | ~2025-06-07 | XR_ITS ---
XR lumbar spine 2-3V Indication: Other symptoms and signs involving the musculoskeletal syste Comparison: None Findings: Mild dextroconvex scoliosis. No fracture or subluxation. Minimal loss of disc height. Soft tissues unremarkable Impression: No acute abnormality. Reviewed, dictated and finalized at location P. ITAL EDUCATOR Impression: No acute abnormality.
== END 2025-06-07 14:34 | disposition home or self-care (01) ==
LOC: MICIMG 14:35
DX: R29.898 Other symptoms and signs involving the musculoskeletal system (principal)
CPT/HCPCS: 72100